=== PATIENT | female | born 1940 | race Caucasian/White ===

== ENCOUNTER 2019-08-27 10:41 | Inpatient (IN) | payer MEDICARE, OTHER ==
[2019-08-27] MEDS ORDERED: Diltiazem 125 MG/25 ML ONE (11:13)
[2019-08-27 11:26] LABS: #Basophils 0.1 thou/uL (0.0-0.2); #Eosinphils 0.2 thou/uL (0.0-0.7); #Lymphocytes 1.7 thou/uL (1.20-3.40); #Monocytes 0.7 thou/uL (0.11-0.59); #Neutrophils 4.9 thou/uL (1.40-6.50); %Basophils 0.8 % (0.0-1.0); %Eosinophils 2.4 % (0.0-10.0); %Monocytes 8.8 % (0.0-10.0); Hemoglobin 16.1 g/dL (12.0-16.0); Mean Corpuscular HGB CONC 31.6 g/dL (32.0-36.0); Mean Corpuscular Hemoglobin 29.5 pg (27.0-31.0); Mean Corpuscular Volume 93.5 fL (78.0-98.0); Mean Platelet Volume 7.7 fL (7.4-10.4); Platelet Count 210 thou/uL (130-400); RBC Distribution Width 13.7 % (11.5-14.5); Red Blood Cell (RBC) Count 5.45 mill/uL (4.20-5.40); White Blood Cell (WBC) Count 7.6 thou/uL (4.8-10.8)
--- NOTE | 2019-08-27 11:37 | RAD ---
RADIOGRAPH CHEST 1 VIEW: DATE: 08/27/2019 TIME: 10:53 AM HISTORY: 79-year-old female with dyspnea COMPARISON: 04/14/2015 FINDINGS: Cardiomegaly. Sternotomy wires. Ectasia of thoracic aorta. Small, faint patchy opacity overlying righ t lower lung zone. New mild blunting of left lateral costophrenic angle. New increased attenuation at medial left lower lobe base. No pneumothorax. No consolidation at lung apices. IMPRESSION: 1. Questionable new small bilateral lower lobe infiltrates. 2. Cardiomegaly 3. probable small left pleural effusion
[2019-08-27 11:54] LABS: ALT (SGPT) 19 U/L (8-55); AST (SGOT) 21 U/L (5-34); Albumin 4.1 g/dL (3.4-4.8); Alkaline Phosphatase 130 U/L (40-110); Anion Gap 15 mmol/L (10-20); BUN (Urea Nitrogen) 21 mg/dL (9.8-20.1); Bilirubin, Total 1.6 mg/dL (0.2-1.2); Calc. Creatinine Clearance 0 mL/min (70-130); Calcium 9.1 mg/dL (7.8-10.44); Carbon Dioxide 26 mmol/L (23-31); Chloride 105 mmol/L (98-107); Estimated GFR-MDRD 46; Glucose 104 mg/dL (83-110); Potassium 3.9 mmol/L (3.5-5.1); Protein, Total 7.1 g/dL (6.0-8.3); Sodium 142 mmol/L (136-145)
[2019-08-27 12:08] LABS: CKMB 1.4 ng/mL (0-6.6)
[2019-08-27] MEDS ORDERED: Nitroglycerin 2% Ointment 1 INCH/1 GM Packet ONE (12:28)
[2019-08-27] MEDS ORDERED: Aspirin Chewable 81 MG TAB ONE (12:28)
[2019-08-27] MEDS ORDERED: Furosemide 40 MG/4 ML VIAL ONE (12:28)
[2019-08-27] MEDS ORDERED: Enoxaparin Sodium 80 MG/0.8 ML SYRINGE ONE (14:03)
[2019-08-27] MEDS ORDERED: Enoxaparin Sodium 100 MG/ML SYRINGE ONE (14:04)
[2019-08-27 15:08] LABS: Troponin I 0.036 ng/mL (< 0.028)
[2019-08-27] MEDS ORDERED: Metoprolol Tartrate 5 MG/5 ML VIAL IVP PRN (15:38)
[2019-08-27] MEDS ORDERED: Acetaminophen 500 MG TAB ONE (15:42)
--- NOTE | 2019-08-27 16:17 | HP ---
CHIEF COMPLAINT: Shortness of breath and increased weight gain. HISTORY OF PRESENT ILLNESS: A 79-year-old female with a history of coronary artery disease, status post CABG and unknown valve replacement with Porcelain, presenting with increased weight of 10 pounds over 1 week. Worsening shortness of breath and weakness and edema. She is noted to have new atrial fibrillation with rate of 130 beats per minute and after Cardizem bolus, rate improved to 90s. Initially, she was hypoxic and with 4 L oxygen, saturations improved to 98%. Initial evaluation suggestive of CHF exacerbation. The patient will be admitted in the telemetry monitoring for CHF management. I talked to Dr. Flores, we will consult his group. The patient has seen Dr. Flores roughly 6 months ago. REVIEW OF SYSTEMS: The patient denies fever, night sweats, chills, productive cough, chest pain. She does have orthopnea and PND, as well as lower extremity edema. Denies any nausea, vomiting, or abdominal pain. She has a colostomy bag. Denies headache or blurriness. ALLERGIES: SHE IS ALLERGIC TO PENICILLIN AND SULFA. PAST MEDICAL HISTORY: 1. Coronary artery disease, status post CABG. 2. Valve replacement. 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 3. Hypertension. PAST SURGICAL HISTORY: History of colon cancer, status post colectomy and colostomy bag placement. MEDICATIONS: 1. Aspirin 81 mg daily. 2. Metoprolol, unknown dose. 3. Lasix 40 mg daily. 4. Potassium chloride, unknown dose. SOCIAL HISTORY: The patient does not smoke or drink alcohol. She lives with her . FAMILY HISTORY: Father of motor vehicle accident. Mother had CHF. LABORATORY DATA: Her creatinine 1.13. Sodium is 142. Her alkaline phosphate is 130 and total bilirubin 1.6. Troponin 0.034. BNP 468. Chest x-ray showed cardiomegaly and mild left pleural effusion and questionable bilateral lower lobe infiltrate. IMPRESSION AND PLAN: A 79-year-old female with history of coronary artery disease and congestive heart failure, presenting with, 1. Congestive heart failure exacerbation. 2. Shortness of breath, weakness, and hypoxia secondary to volume overload. 3. New onset atrial fibrillation with rapid ventricular response, probably triggered by congestive heart failure exacerbation. Currently, pulse is improving in the 90s. 4. Erythrocytosis, probably reflective of obstructive sleep apnea versus obesity hypoventilation syndrome. 5. Acute kidney injury with her last creatinine is less than 1.0. 6. Possible systolic acute on chronic congestive heart failure exacerbation. 7. Type 2 metabolic mismatch, demand ischemia. 8. Hyperbilirubinemia. 9. Elevated alkaline phosphatase. The patient will be admitted in the telemetry monitoring. We will get a 2D echo. We will continue with Lopressor and as needed metoprolol IV to keep the heart rate below 90. TSH is in the normal range. I have talked to Dr. Flores. We will consult on-call anode worker, Dr. Aguila. Given her obesity and congestive heart failure, she probably have portal hypertension as well that may explain her total bilirubin being high; however, the patient also has a remote history of a colon cancer. Strict in and outputs, daily weight, and Lasix IV diuresis and potassium supplement and daily BMP monitoring to watch the creatinine closely. Heparin b.i.d. for DVT prophylaxis. Full code. Job ID: [id number] MTDD
[2019-08-27 18:37] LABS: Troponin I 0.035 ng/mL (< 0.028)
[2019-08-27] MEDS: Metoprolol Tartrate 25 MG TAB PO SCH (20:26)
[2019-08-27] MEDS: Acetaminophen 325 MG TAB PO PRN (23:26)
[2019-08-28] MEDS ORDERED: Enoxaparin Sodium 100 MG/ML SYRINGE SC SCH (01:00)
[2019-08-28] MEDS ORDERED: Furosemide 40 MG/4 ML VIAL SLOW IVP SCH (01:00)
[2019-08-28 04:39] LABS: Band 7 % (5-11); Eosinophils 3 % (0-10); Hemoglobin 14.5 g/dL (12.0-16.0); Lymphocytes 28 % (21-51); MDiff Complete? YES; Mean Corpuscular HGB CONC 31.7 g/dL (32.0-36.0); Mean Corpuscular Hemoglobin 29.7 pg (27.0-31.0); Mean Corpuscular Volume 93.7 fL (78.0-98.0); Mean Platelet Volume 8.2 fL (7.4-10.4); Monocytes 7 % (0-10); Neutrophil 55 % (42-75); Platelet Count 212 thou/uL (130-400); Platelet Morphology Comment Appears Adequate; RBC Distribution Width 13.6 % (11.5-14.5); Red Blood Cell (RBC) Count 4.88 mill/uL (4.20-5.40); White Blood Cell (WBC) Count 8.4 thou/uL (4.8-10.8)
[2019-08-28 04:52] LABS: Anion Gap 14 mmol/L (10-20); BUN (Urea Nitrogen) 22 mg/dL (9.8-20.1); Calc. Creatinine Clearance 80 mL/min (70-130); Calcium 8.5 mg/dL (7.8-10.44); Carbon Dioxide 27 mmol/L (23-31); Chloride 101 mmol/L (98-107); Estimated GFR-MDRD 65; Glucose 104 mg/dL (83-110); Potassium 3.3 mmol/L (3.5-5.1); Sodium 139 mmol/L (136-145)
[2019-08-28] MEDS: Furosemide 40 MG/4 ML VIAL SLOW IVP SCH ×2 (06:01→14:27)
[2019-08-28] MEDS: Acetaminophen 325 MG TAB PO PRN (07:09)
[2019-08-28] MEDS ORDERED: Diltiazem HCl 125 MG, Admixture Fee 1 EACH in Sodium Chloride 0.9% 100 ML IVPB SCH (08:15)
[2019-08-28] MEDS: Metoprolol Tartrate 25 MG TAB PO SCH (08:20)
[2019-08-28 10:05] LABS: Platelet Count 200 thou/uL (130-400)
--- NOTE | 2019-08-28 13:31 | PDOC.HOSPP ---
- Subjective Encounter Date: 08/28/19 Encounter Time: 10:40 Subjective: having her meals, feels much better, her feet looks less taut. ouput 1400ml. - Objective Vital Signs & Weight: Vital Signs (12 hours) Temp Pulse Resp BP Pulse Ox 08/28/19 11:15 97.9 F 94 22 H 138/62 93 L 08/28/19 08:20 93 L 08/28/19 07:04 98.3 F 108 H 19 152/74 H 93 L 08/28/19 03:34 98.3 F 100 20 130/60 93 L Weight Weight 206 lb 6.4 oz I&O: 08/27/19 08/28/19 08/29/19 06:59 06:59 06:59 Intake Total 308 Output Total 1700 Balance -1392 Result Diagrams: 08/28/19 09:56 08/28/19 09:56 Hospitalist ROS - Medication Medications: Active Medications Generic Name Dose Route Start Last Admin Trade Name Freq PRN Reason Stop Dose Admin Acetaminophen 650 mg 08/27/19 12:53 08/28/19 07:09 Tylenol PO 650 mg Q4H PRN Administration Headache/Fever/Mild Pain (1-3) Furosemide 40 mg 08/28/19 06:00 08/28/19 06:01 Lasix SLOW IVP 40 mg 0600,1400 MANA Administration Metoprolol Tartrate 25 mg 08/27/19 21:00 08/28/19 08:20 Lopressor PO 25 mg BID MANA Administration - Exam General Appearance: NAD, awake alert Eye: PERRL ENT: normocephalic atraumatic Neck: supple Heart: RRR Respiratory: CTAB, normal chest expansion Gastrointestinal: soft, normal bowel sounds Extremities: 2+ LE edema Extremities - other findings: improving, skin less taut Neurological: no focal deficits Hosp A/P - Plan CHF exacerbation -good urine output around 1400ml/18hrs --cw iv lasix -cardiology input and echo pending. afib -HR still close to 100s - on cardizem gtt and home lopressor -lovenox bid until echo rpt reviewed.--then eliquis or xarelto erythrocytosis -resolved ERNESTO --improved. --cr at baseline now. --monitor closely. full code.
--- NOTE | 2019-08-28 15:52 | EKG ---
Test Reason : SOB Blood Pressure : / mmHG Vent. Rate : 126 BPM Atrial Rate : 136 BPM P-R Int : 000 ms QRS Dur : 120 ms QT Int : 312 ms P-R-T Axes : 000 -06 -32 degrees QTc Int : 451 ms Atrial fibrillation with rapid ventricular response with premature ventricular or aberrantly conducte d complexes Right bundle branch block Abnormal ECG Confirmed by RITA BALES DO ([id number]), news editor VILLA QUINTANILLA ([id number]) on 08/28/2019 3:51:37 PM Referred By: AMAIRANI Confirmed By:RITA BALES DO
--- NOTE | 2019-08-28 18:41 | CON ---
DATE OF CONSULTATION: REASON FOR CONSULTATION: Atrial fibrillation. HISTORY OF PRESENT ILLNESS: Ms. Stafford is a 79-year-old woman whom I have seen and evaluated in the past. She has a history of AVR. She recently presented with palpitations and shortness of breath. She was found to be in atrial fibrillation with RVR. She was placed on Cardizem IV. She is also currently on metoprolol p.o. She states overall she feels better. PAST MEDICAL HISTORY: CAD, status post bypass surgery and valve replacement; hypertension; previous colon cancer, status post colectomy. MEDICATIONS: Include, 1. Aspirin. 2. Metoprolol. 3. Lasix. 4. Potassium. SOCIAL HISTORY: No current tobacco or alcohol use. REVIEW OF SYSTEMS: A 10-point review of systems is reviewed as above, otherwise negative. PHYSICAL EXAMINATION: GENERAL: Patient is a pleasant female who is in no acute distress. The patient appears their stated age. VITAL SIGNS: Blood pressure 132/74, pulse 84, temperature 98.2. NEUROLOGIC: The patient is alert and oriented x3 with no focal neurologic deficits. HEENT: Sclerae without icterus. Mouth has moist mucous membranes with normal pallor. NECK: No JVD. Carotid upstroke brisk. No bruits bilaterally. LUNGS: Clear to auscultation with unlabored respirations. BACK: No scoliosis or kyphosis. CARDIAC: Irregularly irregular. ABDOMEN: Soft, nontender, nondistended. No peritoneal signs present. No hepatosplenomegaly. No abnormal striae. EXTREMITIES: 2+ femoral and 2+ dorsalis pedis pulses. No cyanosis, clubbing, or edema. SKIN: No gross abnormalities. PERTINENT LABORATORY DATA: Hemoglobin 15 and hematocrit 45. IMPRESSION: 1. New onset atrial fibrillation. 2. Coronary artery disease. 3. Status post aortic valve replacement. RECOMMENDATIONS: 1. Agree with anticoagulation therapy in addition to Lasix. 2. Continue p.o. beta david therapy and titrate up as needed. We will also recommend continued IV Cardizem. We will increase metoprolol to 37.5 mg p.o. b.i.d. Job ID: [id number]
[2019-08-28] MEDS: Enoxaparin Sodium 100 MG/ML SYRINGE SC SCH (20:31)
[2019-08-28] MEDS ORDERED: Metoprolol Tartrate 25 MG TAB PO SCH (21:00)
[2019-08-29] MEDS: Furosemide 40 MG/4 ML VIAL SLOW IVP SCH ×2 (05:28→15:26)
[2019-08-29] MEDS: Enoxaparin Sodium 100 MG/ML SYRINGE SC SCH (09:09)
--- NOTE | 2019-08-29 10:29 | PRG ---
DATE OF SERVICE: 08/29/2019 SUBJECTIVE: Ms. Stafford is doing much better. She has lost close to 10 pounds in the last 24 hours. Her heart rate is better, but continues to be on IV Cardizem. OBJECTIVE: VITAL SIGNS: Blood pressure 132/81, pulse 74, and temperature 97.9. LUNGS: Decreased crackles noted bilaterally. HEART: Irregularly irregular. ABDOMEN: Soft, nontender, and nondistended. EXTREMITIES: No edema. PERTINENT LABORATORY DATA: Hemoglobin 15 and hematocrit 45. IMPRESSION: Atrial fibrillation. RECOMMENDATIONS: 1. Continue IV Lasix. May decrease the Lasix to daily tomorrow. 2. Discontinue metoprolol and add Cardizem p.o. and trying to titrate down IV. Job ID: [id number]
--- NOTE | 2019-08-29 13:29 | PDOC.HOSPP ---
- Subjective Encounter Date: 08/29/19 Encounter Time: 11:50 Subjective: edema is improving, pt feels much better. she has no c/o this morning. card note reviewed, will dec lasix to q daily IV on 22ns. - Objective Vital Signs & Weight: Vital Signs (12 hours) Temp Pulse Resp BP Pulse Ox 08/29/19 12:16 98.0 F 86 18 136/56 L 93 L 08/29/19 09:09 93 L 08/29/19 07:33 97.9 F 74 19 132/81 93 L 08/29/19 04:00 98.0 F 68 18 128/73 94 L Weight Weight 201 lb 6.4 oz I&O: 08/28/19 08/29/19 08/30/19 06:59 06:59 06:59 Intake Total 1779.2 Output Total 4400 Balance -2620.8 Result Diagrams: 08/28/19 09:56 08/28/19 09:56 Hospitalist ROS - Medication Medications: Active Medications Generic Name Dose Route Start Last Admin Trade Name Cristianoq PRN Reason Stop Dose Admin Acetaminophen 650 mg 08/27/19 12:53 08/28/19 07:09 Tylenol PO 650 mg Q4H PRN Administration Headache/Fever/Mild Pain (1-3) Diltiazem HCl 60 mg 08/29/19 12:00 08/29/19 12:19 Cardizem PO 60 mg Q6HR MANA Administration Enoxaparin Sodium 90 mg 08/28/19 21:00 08/29/19 09:09 Lovenox SC 90 mg BID MANA Administration Furosemide 40 mg 08/28/19 06:00 08/29/19 05:28 Lasix SLOW IVP 40 mg 0600,1400 MANA Administration - Exam General Appearance: awake alert Eye: PERRL ENT: normocephalic atraumatic Neck: supple Heart: RRR, normal peripheral pulses Respiratory: CTAB, normal chest expansion Gastrointestinal: soft, normal bowel sounds Extremities - other findings: no edema Hosp A/P - Plan CHF exacerbation -good urine output around 1400ml/18hrs --cw iv lasix afib -HR still close to 100s - on cardizem gtt and home lopressor -lovenox bid until echo rpt reviewed.--then eliquis or xarelto erythrocytosis -resolved ERNESTO --improved. --cr at baseline now. --monitor closely. will change lasix bid to q daily on echo rpt pending need to change AC to PO -will talk to cardiology. full code.
[2019-08-29] MEDS: Apixaban 5 MG TAB PO SCH (20:32)
[2019-08-30] MEDS: Furosemide 40 MG/4 ML VIAL SLOW IVP SCH ×2 (05:55→14:01)
[2019-08-30] MEDS: Apixaban 5 MG TAB PO SCH ×2 (08:23→20:53)
[2019-08-30 08:40] LABS: Anion Gap 16 mmol/L (10-20); BUN (Urea Nitrogen) 19 mg/dL (9.8-20.1); Calc. Creatinine Clearance 71 mL/min (70-130); Carbon Dioxide 30 mmol/L (23-31); Chloride 97 mmol/L (98-107); Estimated GFR-MDRD 59; Glucose 129 mg/dL (83-110); Potassium 3.5 mmol/L (3.5-5.1); Sodium 139 mmol/L (136-145)
--- NOTE | 2019-08-30 13:12 | PDOC.HOSPP ---
- Subjective Encounter Date: 08/30/19 Encounter Time: 10:10 Subjective: morning nap? feels that staffs helped to clean her up, feels little tired but otherwise ok, and "doing well". pulse < 90, will stop the drip. - Objective Vital Signs & Weight: Vital Signs (12 hours) Temp Pulse Resp BP Pulse Ox 08/30/19 11:17 98.0 F 83 20 130/74 95 08/30/19 07:28 98.1 F 102 H 20 143/74 H 92 L 08/30/19 04:00 97.8 F 95 20 131/68 93 L Weight Weight 200 lb I&O: 08/29/19 08/30/19 08/31/19 06:59 06:59 06:59 Intake Total 1779.2 1008 259 Output Total 4400 2150 1200 Balance -2620.8 -1142 -941 Result Diagrams: 08/28/19 09:56 08/30/19 07:57 Hospitalist ROS - Medication Medications: Active Medications Generic Name Dose Route Start Last Admin Trade Name Freq PRN Reason Stop Dose Admin Acetaminophen 650 mg 08/27/19 12:53 08/28/19 07:09 Tylenol PO 650 mg Q4H PRN Administration Headache/Fever/Mild Pain (1-3) Apixaban 5 mg 08/29/19 21:00 08/30/19 08:23 Eliquis PO 5 mg BID MANA Administration Diltiazem HCl 60 mg 08/29/19 12:00 08/30/19 11:27 Cardizem PO 60 mg Q6HR MANA Administration Furosemide 40 mg 08/28/19 06:00 08/30/19 05:55 Lasix SLOW IVP 40 mg 0600,1400 MANA Administration - Exam General Appearance: NAD, awake alert Eye: PERRL Neck: supple Heart: irregular Respiratory: CTAB, normal chest expansion Gastrointestinal: soft, normal bowel sounds Neurological: no focal deficits Hosp A/P - Plan CHF exacerbation -good urine output around 1400ml/18hrs --cw iv lasix afib -HR still close to 100s - on cardizem gtt and home lopressor -lovenox bid until echo rpt reviewed.--then eliquis or xarelto erythrocytosis -resolved ERNESTO --improved. --cr at baseline now. --monitor closely. will change lasix bid to q daily on echo rpt pending----------> checked on -- still pending. need to change AC to PO----started on --eliquis 5 bid -Bobo w.. cardiology on AC choice. PT consult. C vs.. rehab. full code.
--- NOTE | 2019-08-30 14:43 | PRG ---
DATE OF SERVICE: 08/30/2019 SUBJECTIVE: Ms. Stafford is doing much better. She feels better with less shortness of breath. Heart rate appears to be improved as well. She is currently on diltiazem 60 mg q.6 hours for a total of 240 in a 24-hour period. OBJECTIVE: VITAL SIGNS: Blood pressure 130/74, pulse 83, and temperature 98. LUNGS: Minimal crackles bilaterally. HEART: Irregularly irregular. ABDOMEN: Soft, nontender, and nondistended. EXTREMITIES: No edema. PERTINENT LABORATORY DATA: Hemoglobin 15 and creatinine 0.92. IMPRESSION: New-onset atrial fibrillation. RECOMMENDATIONS: 1. Discontinue IV Cardizem and continue p.o. Cardizem. 2. May increase short-acting Cardizem to 360 q.24 hours if needed, but at this point, she is holding at 240 q.24 hours. We will switch the Lasix to p.o. Lasix in a.m. Agree with discontinuing Lovenox and place of Eliquis. If doing well in a.m., would be okay from my standpoint to discharge home. Job ID: [id number]
[2019-08-30] MEDS ORDERED: Amlodipine 5 MG TAB PO SCH (18:45)
[2019-08-31 04:39] LABS: Hemoglobin 15.5 g/dL (12.0-16.0); Platelet Count 219 thou/uL (130-400)
[2019-08-31 04:40] LABS: #Eosinphils 0.4 thou/uL (0.0-0.7); #Lymphocytes 1.7 thou/uL (1.20-3.40); #Monocytes 0.9 thou/uL (0.11-0.59); #Neutrophils 5.5 thou/uL (1.40-6.50); %Basophils 0.2 % (0.0-1.0); %Eosinophils 4.3 % (0.0-10.0); %Monocytes 10.6 % (0.0-10.0); %Neutrophils 64.9 % (42.0-75.0); Hemoglobin 15.3 g/dL (12.0-16.0); Mean Corpuscular HGB CONC 30.3 g/dL (32.0-36.0); Mean Corpuscular Hemoglobin 28.5 pg (27.0-31.0); Mean Corpuscular Volume 94.1 fL (78.0-98.0); Mean Platelet Volume 7.5 fL (7.4-10.4); Platelet Count 226 thou/uL (130-400); RBC Distribution Width 13.9 % (11.5-14.5); Red Blood Cell (RBC) Count 5.38 mill/uL (4.20-5.40); White Blood Cell (WBC) Count 8.5 thou/uL (4.8-10.8)
[2019-08-31] MEDS: Furosemide 40 MG/4 ML VIAL SLOW IVP SCH (05:51)
[2019-08-31] MEDS ORDERED: Amlodipine 5 MG TAB PO SCH (09:00)
[2019-08-31] MEDS: Acetaminophen 325 MG TAB PO PRN (09:41)
[2019-08-31] MEDS: Apixaban 5 MG TAB PO SCH ×2 (09:42→20:53)
[2019-08-31] MEDS ORDERED: Metoprolol Tartrate 25 MG TAB PO SCH (11:30)
--- NOTE | 2019-08-31 13:42 | PDOC.CPN ---
- Subjective Date: 08/31/19 Time: 12:30 Interval history: Patient overall feeling much better. No CP/SOB. Still with RVR. - Review of Systems General: denies: fever/chills, weight/appetite/sleep changes, night sweats, fatigue Respiratory: denies: cough, congestion, shortness of breath, exercise intolerance Cardiovascular: denies: chest pain, palpitation, edema, paroxysmal nocturnal dyspnea, orthopnea Gastrointestinal: denies: nausea, vomiting, diarrhea, constipation, abd pain, GI bleeding Musculoskeletal: denies: pain, tenderness, stiffness, swelling, arthritis/ arthralgias Neurological: denies: numbness, syncope, seizure, weakness - Objective Allergies/Adverse Reactions: Allergies Allergy/AdvReac Type Severity Reaction Status Date / Time Penicillins Allergy Verified 08/27/19 17:04 Sulfa (Sulfonamide Allergy Verified 08/27/19 17:04 Antibiotics) Visit Medications: Current Medications Acetaminophen (Tylenol) 650 mg PO Q4H PRN PRN Reason: Headache/Fever/Mild Pain (1-3) Last Admin: 08/31/19 09:41 Dose: 650 mg Amlodipine Besylate (Norvasc) 5 mg PO DAILY [facility] Last Admin: 08/31/19 09:41 Dose: 5 mg Apixaban (Eliquis) 5 mg PO BID [facility] Last Admin: 08/31/19 09:42 Dose: 5 mg Diltiazem HCl (Cardizem) 60 mg PO Q6HR [facility] Last Admin: 08/31/19 12:01 Dose: 60 mg Furosemide (Lasix) 20 mg PO 0900,1400 [facility] Metoprolol Tartrate (Lopressor) 12.5 mg PO BID [facility] Vital Signs & Weight: Vital Signs Temp Pulse Resp BP BP Pulse Ox 08/31/19 12:00 98.4 F 120 H 18 124/63 99 08/31/19 09:45 95 08/31/19 09:41 110 H 122/59 L 08/31/19 09:31 98.2 F 110 H 16 122/59 L 95 08/31/19 03:51 98.2 F 113 H 20 121/72 93 L Weight 197 lb 12.8 oz - Physical Exam General: alert & oriented x3 HEENT: mucus membranes moist Neck: supple neck Cardiac: other (IRR iRR) Lungs: clear to auscultation, no wheeze, rales, rhonchi Neuro: grossly intact Abdomen: soft, non-tender Extremities: no edema Musculoskeletal: no pain - Labs Result Diagrams: 08/31/19 03:59 08/30/19 07:57 Troponin/CKMB CK-MB (CK-2) 1.4 ng/mL (0-6.6) 08/27/19 11:01 Troponin I 0.035 ng/mL (< 0.028) H 08/27/19 17:55 - Assessment/Plan Assessment/Plan: 1. New-onset AF 2. s/p AVR Patient still with RVR. BBlocker added today. Probably will need increased dosage of Toprol or CCB. Stop Norvasc. Continue Eliquis. RG-Pt seen and examined; agree with the above assessment Add digoxin loading and add BB Home whern HR stable
[2019-08-31] MEDS: Furosemide 20 MG TAB PO SCH (14:16)
[2019-08-31] MEDS ORDERED: Digoxin 0.5 MG/2 ML AMP SLOW IVP SCH (15:00)
--- NOTE | 2019-08-31 15:55 | PDOC.HOSPP ---
- Subjective Encounter Date: 08/31/19 Encounter Time: 14:00 Subjective: Ms Stafford was seen as a follow up this afternoon for Afib, CHF exacerbation, and ERNESTO. She states she is doing well and wants to go home. She feels that her heart still is going too fast though. No overnight events or concerns expressed. - Objective Vital Signs & Weight: Vital Signs (12 hours) Temp Pulse Resp BP BP Pulse Ox 08/31/19 12:00 98.4 F 120 H 18 124/63 99 08/31/19 09:45 95 08/31/19 09:41 110 H 122/59 L 08/31/19 09:31 98.2 F 110 H 16 122/59 L 95 Weight Weight 197 lb 12.8 oz I&O: 08/30/19 08/31/19 09/01/19 06:59 06:59 06:59 Intake Total 1008 1819 Output Total 2150 2400 Balance -1142 -581 Result Diagrams: 08/31/19 03:59 08/30/19 07:57 EKG Reviewed by me: Yes (AF 110s) Hospitalist ROS - Medication Medications: Active Medications Generic Name Dose Route Start Last Admin Trade Name Freq PRN Reason Stop Dose Admin Acetaminophen 650 mg 08/27/19 12:53 08/31/19 09:41 Tylenol PO 650 mg Q4H PRN Administration Headache/Fever/Mild Pain (1-3) Apixaban 5 mg 08/29/19 21:00 08/31/19 09:42 Eliquis PO 5 mg BID MANA Administration Diltiazem HCl 60 mg 08/29/19 12:00 08/31/19 12:01 Cardizem PO 60 mg Q6HR MANA Administration Furosemide 20 mg 08/31/19 14:00 08/31/19 14:16 Lasix PO 20 mg 0900,1400 MANA Administration - Exam General Appearance: NAD, awake alert Neck: supple, no lymphadenopathy Heart: no murmur, no gallops, no rubs, irregular, diminshed peripheral pulses Respiratory: normal chest expansion, wheezes Respiratory - other findings: nonproductive cough Gastrointestinal: soft, non-tender Gastrointestinal - other findings: colostomy to lower RQ Extremities: no cyanosis, 2+ LE edema Neurological: no focal deficits Psychiatric: normal affect, normal behavior Hosp A/P (1) Afib Code(s): I48.91 - UNSPECIFIED ATRIAL FIBRILLATION Status: Acute (2) ERNESTO (acute kidney injury) Code(s): N17.9 - ACUTE KIDNEY FAILURE, UNSPECIFIED Status: Acute (3) CHF exacerbation Code(s): I50.9 - HEART FAILURE, UNSPECIFIED Status: Acute - Plan AFib: BB initiated per cardiology, PO cardizem continued, will continue to monitor on telemetry and see how she does with BB overnight ERNESTO: has improved since admission- now at baseline levels, will still be mindful of nephrotoxic medications when making adjustments CHF Exacerbation: states breathing has been easier since admission, continue Lasix- changed to PO today
--- NOTE | 2019-08-31 19:08 | PDOC.EVN ---
Event Note - Event Note Event Note: Ms. Stafford was seen today and discussed with Nhi GALICIA, in follow- up of AFIB with RVR. She notes feeling a little heaviness in her chest earlier. She says this is better now. She has noted some coughing since she started the new medication ( Metoprolol). On exam she had some wheezing bilaterally, no rales. She also had approximately 1-2 + pitting edema in both lower extremities. Her heart rate has been elevated. Metoprolol has been added to Cardizem. Will continue as per Cardiology recommendations.
[2019-08-31] MEDS ORDERED: Diabetic Tussin 200 MG/10 ML UDCUP PO PRN (20:34)
[2019-08-31] MEDS: Metoprolol Tartrate 25 MG TAB PO SCH (20:55)
[2019-08-31] MEDS ORDERED: Digoxin 0.25 MG TAB PO SCH (21:00)
[2019-09-01 04:28] LABS: Anion Gap 13 mmol/L (10-20); BUN (Urea Nitrogen) 22 mg/dL (9.8-20.1); Calc. Creatinine Clearance 75 mL/min (70-130); Calcium 9.2 mg/dL (7.8-10.44); Carbon Dioxide 29 mmol/L (23-31); Chloride 100 mmol/L (98-107); Estimated GFR-MDRD 64; Glucose 109 mg/dL (83-110); Potassium 3.8 mmol/L (3.5-5.1); Sodium 138 mmol/L (136-145)
[2019-09-01] MEDS: Digoxin 0.125 MG TAB PO SCH (08:49)
[2019-09-01] MEDS: Apixaban 5 MG TAB PO SCH ×2 (08:50→21:57)
[2019-09-01] MEDS: Metoprolol Tartrate 25 MG TAB PO SCH ×2 (08:50→21:57)
[2019-09-01] MEDS: Furosemide 20 MG TAB PO SCH ×2 (08:51→14:12)
[2019-09-01] MEDS ORDERED: Metoprolol Tartrate 25 MG TAB PO SCH (10:15)
--- NOTE | 2019-09-01 12:44 | PDOC.CPN ---
- Subjective Date: 09/01/19 Time: 09:30 Interval history: No complaints. Pulse still 100-120bpm on average. Loaded with Dig yesterday. - Review of Systems General: denies: fever/chills, weight/appetite/sleep changes, night sweats, fatigue Respiratory: denies: cough, congestion, shortness of breath, exercise intolerance Cardiovascular: denies: chest pain, palpitation, edema, paroxysmal nocturnal dyspnea, orthopnea Gastrointestinal: denies: nausea, vomiting, diarrhea, constipation, abd pain, GI bleeding Musculoskeletal: denies: pain, tenderness, stiffness, swelling, arthritis/ arthralgias Neurological: reports: weakness - Objective Allergies/Adverse Reactions: Allergies Allergy/AdvReac Type Severity Reaction Status Date / Time Penicillins Allergy Verified 08/27/19 17:04 Sulfa (Sulfonamide Allergy Verified 08/27/19 17:04 Antibiotics) Visit Medications: Current Medications Acetaminophen (Tylenol) 650 mg PO Q4H PRN PRN Reason: Headache/Fever/Mild Pain (1-3) Last Admin: 08/31/19 09:41 Dose: 650 mg Apixaban (Eliquis) 5 mg PO BID [facility] Last Admin: 09/01/19 08:50 Dose: 5 mg Digoxin (Lanoxin) 0.125 mg PO DAILY [facility] Last Admin: 09/01/19 08:49 Dose: 0.125 mg Diltiazem HCl (Cardizem) 90 mg PO Q6HR [facility] Last Admin: 09/01/19 12:22 Dose: 90 mg Furosemide (Lasix) 20 mg PO 0900,1400 [facility] Last Admin: 09/01/19 08:51 Dose: 20 mg Guaifenesin (Robitussin Sf) 100 mg PO TIDPRN PRN PRN Reason: Cough Last Admin: 08/31/19 20:53 Dose: 100 mg Metoprolol Tartrate (Lopressor) 25 mg PO BID [facility] Vital Signs & Weight: Vital Signs Temp Pulse Resp BP Pulse Ox 09/01/19 11:39 97.9 F 80 20 131/65 92 L 09/01/19 08:55 92 L 09/01/19 08:49 105 H 09/01/19 08:39 98.6 F 83 16 130/71 92 L 09/01/19 03:48 97.4 F L 99 16 136/70 92 L Weight 196 lb 12.8 oz - Physical Exam General: alert & oriented x3 HEENT: mucus membranes moist Neck: supple neck Cardiac: other (IRR IRR) Lungs: no wheeze, rales, rhonchi Neuro: grossly intact Abdomen: soft Skin: clear Musculoskeletal: no pain - Labs Result Diagrams: 08/31/19 03:59 09/01/19 03:45 Troponin/CKMB CK-MB (CK-2) 1.4 ng/mL (0-6.6) 08/27/19 11:01 Troponin I 0.035 ng/mL (< 0.028) H 08/27/19 17:55 - Assessment/Plan Assessment/Plan: 1. New onset AF with RVR 2. s/p AVR 3. DEMIAN 4. Hx CAD with 50% mid LAD stenosis on cath 2011 Will increase bblocker. If rate control cannot be acheived, consider cardioversion. 12:30 Discussed with RG. He instructs adding flecainide 50mg BID. Pt seen and examined Pt with difficult to control HR On CCB and BB Recommend CV in am Discussed R/B of RUSSELL/CV including not limited to: stroke, damage to teeth, moputh, esophagus requiring surgery and aspiration pneumonia. Also failed CV, need for pacer, or need for repeat CV. Pt agreed to prooceed. Add flecainide
--- NOTE | 2019-09-01 13:08 | PDOC.HOSPP ---
- Subjective Encounter Date: 09/01/19 Encounter Time: 12:05 Subjective: Mrs Stafford was seen as a follow up for Afib, CHF exacerbation and ERNESTO. She states she feels well and her cough is better. She denies any concerns or overnight events. - Objective Vital Signs & Weight: Vital Signs (12 hours) Temp Pulse Resp BP Pulse Ox 09/01/19 11:39 97.9 F 80 20 131/65 92 L 09/01/19 08:55 92 L 09/01/19 08:49 105 H 09/01/19 08:39 98.6 F 83 16 130/71 92 L 09/01/19 03:48 97.4 F L 99 16 136/70 92 L Weight Weight 196 lb 12.8 oz I&O: 08/31/19 09/01/19 09/02/19 06:59 06:59 06:59 Intake Total 1819 1980 Output Total 2400 970 Balance -581 1010 Result Diagrams: 08/31/19 03:59 09/01/19 03:45 EKG Reviewed by me: Yes (AF 100s) Hospitalist ROS - Medication Medications: Active Medications Generic Name Dose Route Start Last Admin Trade Name Freq PRN Reason Stop Dose Admin Acetaminophen 650 mg 08/27/19 12:53 08/31/19 09:41 Tylenol PO 650 mg Q4H PRN Administration Headache/Fever/Mild Pain (1-3) Apixaban 5 mg 08/29/19 21:00 09/01/19 08:50 Eliquis PO 5 mg BID MANA Administration Digoxin 0.125 mg 09/01/19 09:00 09/01/19 08:49 Lanoxin PO 0.125 mg DAILY MANA Administration Diltiazem HCl 90 mg 09/01/19 12:00 09/01/19 12:22 Cardizem PO 90 mg Q6HR MANA Administration Furosemide 20 mg 08/31/19 14:00 09/01/19 08:51 Lasix PO 20 mg 0900,1400 MANA Administration Guaifenesin 100 mg 08/31/19 20:34 08/31/19 20:53 Robitussin Sf PO 100 mg TIDPRN PRN Administration Cough - Exam General Appearance: NAD, awake alert Neck: supple, symmetric, no lymphadenopathy Heart: no murmur, no gallops, no rubs, irregular Respiratory: CTAB, no wheezes Gastrointestinal: soft, non-tender, non-distended, normal bowel sounds Psychiatric: normal affect, normal behavior Hosp A/P (1) Afib Code(s): I48.91 - UNSPECIFIED ATRIAL FIBRILLATION Status: Acute (2) ERNESTO (acute kidney injury) Code(s): N17.9 - ACUTE KIDNEY FAILURE, UNSPECIFIED Status: Acute (3) CHF exacerbation Code(s): I50.9 - HEART FAILURE, UNSPECIFIED Status: Acute - Plan AFib: BB, cadizem and digoxin to continue, monitor tele, cardiology still providing input ERNESTO: stable CHF Exacerbation: PO lasix, stable
[2019-09-01] MEDS ORDERED: Milk Of Magnesia 30 ML UDCUP PO PRN (14:26)
--- NOTE | 2019-09-01 15:10 | PDOC.HOSPP ---
- Subjective Encounter Date: 09/01/19 Encounter Time: 15:08 Subjective: Ms. Stafford was seen today in follow-up of AFIB with Rvr. Her heart rate has been elevated despite medications. She currently denies chest pain or difficulty breathing. - Objective Vital Signs & Weight: Vital Signs (12 hours) Temp Pulse Resp BP Pulse Ox 09/01/19 11:39 97.9 F 80 20 131/65 92 L 09/01/19 08:55 92 L 09/01/19 08:49 105 H 09/01/19 08:39 98.6 F 83 16 130/71 92 L 09/01/19 03:48 97.4 F L 99 16 136/70 92 L Weight Weight 196 lb 12.8 oz I&O: 08/31/19 09/01/19 09/02/19 06:59 06:59 06:59 Intake Total 1819 1980 Output Total 2400 970 Balance -581 1010 Result Diagrams: 08/31/19 03:59 09/01/19 03:45 Hospitalist ROS - Medication Medications: Active Medications Generic Name Dose Route Start Last Admin Trade Name Freq PRN Reason Stop Dose Admin Acetaminophen 650 mg 08/27/19 12:53 08/31/19 09:41 Tylenol PO 650 mg Q4H PRN Administration Headache/Fever/Mild Pain (1-3) Apixaban 5 mg 08/29/19 21:00 09/01/19 08:50 Eliquis PO 5 mg BID MANA Administration Digoxin 0.125 mg 09/01/19 09:00 09/01/19 08:49 Lanoxin PO 0.125 mg DAILY MANA Administration Diltiazem HCl 90 mg 09/01/19 12:00 09/01/19 12:22 Cardizem PO 90 mg Q6HR MANA Administration Furosemide 20 mg 08/31/19 14:00 09/01/19 14:12 Lasix PO 20 mg 0900,1400 MANA Administration Guaifenesin 100 mg 08/31/19 20:34 08/31/19 20:53 Robitussin Sf PO 100 mg TIDPRN PRN Administration Cough Magnesium Hydroxide 30 ml 09/01/19 14:26 09/01/19 14:38 Milk Of Magnesium PO 30 ml DAILYPRN PRN Administration Constipation - Exam Eye: PERRL, anicteric sclera Heart: no gallops, no rubs, irregular Respiratory: CTAB (with occasional rhonchi), no wheezes, no rales, normal chest expansion Gastrointestinal: soft, non-tender, non-distended, normal bowel sounds, no palpable masses, no hepatomegaly Extremities: no cyanosis Hosp A/P (1) Afib Code(s): I48.91 - UNSPECIFIED ATRIAL FIBRILLATION Status: Acute (2) ERNESTO (acute kidney injury) Code(s): N17.9 - ACUTE KIDNEY FAILURE, UNSPECIFIED Status: Acute (3) CHF exacerbation Code(s): I50.9 - HEART FAILURE, UNSPECIFIED Status: Acute - Plan * AFIB- her heart rate has been elevated- Digoxin was added to Cardizem and Metoprolol yesterday. Flecainide was added today * Likely Cardioversion tomorrow * Chronic CHF with preserved EF- stable * Chronic kidney disease- stable
[2019-09-01] MEDS ORDERED: Flecainide 50 MG TAB PO SCH (17:00)
[2019-09-01] MEDS: Acetaminophen 325 MG TAB PO PRN (21:57)
[2019-09-02] MEDS: Digoxin 0.125 MG TAB PO SCH (08:50)
[2019-09-02] MEDS: Furosemide 20 MG TAB PO SCH ×2 (08:50→12:55)
[2019-09-02] MEDS: Flecainide 50 MG TAB PO SCH ×2 (08:51→20:44)
[2019-09-02] MEDS: Apixaban 5 MG TAB PO SCH ×2 (08:51→20:44)
[2019-09-02] MEDS: Metoprolol Tartrate 25 MG TAB PO SCH ×2 (08:51→20:44)
[2019-09-02 10:35] LABS: SARS-CoV-2 MS2 Positive; SARS-CoV-2 N Gene Negative; SARS-CoV-2 S Gene Negative; SARS-CoV-2 orf1ab Negative
--- NOTE | 2019-09-02 11:58 | PDOC.HOSPP ---
- Subjective Encounter Date: 09/02/19 Encounter Time: 10:45 Subjective: Mrs Stafford was seen this morning for a follow up on her Afib with RVR. She was rate controlled throughout the night and denies any other overnight events or concerns. This morning she has been laughing and saying she feels great. - Objective Vital Signs & Weight: Vital Signs (12 hours) Temp Pulse Resp BP Pulse Ox 09/02/19 11:37 97.4 F L 84 19 128/58 L 96 09/02/19 08:56 98.1 F 80 16 115/82 96 09/02/19 08:50 81 09/02/19 03:53 97.7 F 73 18 100/54 L 95 Weight Weight 194 lb 14.4 oz I&O: 09/01/19 09/02/19 09/03/19 06:59 06:59 06:59 Intake Total 1980 960 Output Total 970 1220 Balance 1010 -260 Result Diagrams: 08/31/19 03:59 09/01/19 03:45 Hospitalist ROS - Medication Medications: Active Medications Generic Name Dose Route Start Last Admin Trade Name Freq PRN Reason Stop Dose Admin Acetaminophen 650 mg 08/27/19 12:53 09/01/19 21:57 Tylenol PO 650 mg Q4H PRN Administration Headache/Fever/Mild Pain (1-3) Apixaban 5 mg 08/29/19 21:00 09/02/19 08:51 Eliquis PO 5 mg BID MANA Administration Digoxin 0.125 mg 09/01/19 09:00 09/02/19 08:50 Lanoxin PO 0.125 mg DAILY MANA Administration Diltiazem HCl 90 mg 09/01/19 12:00 09/02/19 05:51 Cardizem PO 90 mg Q6HR MANA Administration Flecainide Acetate 50 mg 09/02/19 09:00 09/02/19 08:51 Tambocor PO 50 mg Q12HR MANA Administration Furosemide 20 mg 08/31/19 14:00 09/02/19 08:50 Lasix PO 20 mg 0900,1400 MANA Administration Guaifenesin 100 mg 08/31/19 20:34 08/31/19 20:53 Robitussin Sf PO 100 mg TIDPRN PRN Administration Cough Magnesium Hydroxide 30 ml 09/01/19 14:26 09/01/19 14:38 Milk Of Magnesium PO 30 ml DAILYPRN PRN Administration Constipation Metoprolol Tartrate 25 mg 09/01/19 21:00 09/02/19 08:51 Lopressor PO 25 mg BID MANA Administration - Exam General Appearance: NAD, awake alert ENT: normocephalic atraumatic, moist mucosa Neck: supple, symmetric, no lymphadenopathy Heart: no murmur, no gallops, no rubs, irregular, diminshed peripheral pulses Respiratory: CTAB, no wheezes, no rales, no ronchi Gastrointestinal: soft, non-tender, normal bowel sounds Extremities: 1+ LE edema Psychiatric: normal affect, normal behavior Hosp A/P (1) Afib Code(s): I48.91 - UNSPECIFIED ATRIAL FIBRILLATION Status: Acute (2) ERNESTO (acute kidney injury) Code(s): N17.9 - ACUTE KIDNEY FAILURE, UNSPECIFIED Status: Acute (3) CHF exacerbation Code(s): I50.9 - HEART FAILURE, UNSPECIFIED Status: Acute - Plan AFib: flecanide added yesterday to medication regimen, AF 70s currently- states she feels great, cardiology feels she may be discharged later this day if stays rate controlled ERNESTO: appears to be back to baseline GFR and creatinine CHF Exacerbation: PO lasix, will try to wean off O2 today
[2019-09-02] MEDS: Acetaminophen 325 MG TAB PO PRN ×2 (12:56→23:01)
--- NOTE | 2019-09-02 15:01 | PDOC.HOSPP ---
- Subjective Encounter Date: 09/02/19 Encounter Time: 15:00 Subjective: Ms. Stafford was seen today in follow-up of AFIB with rvr. She notes breathing better today, no new complaints. - Objective Vital Signs & Weight: Vital Signs (12 hours) Temp Pulse Resp BP Pulse Ox 09/02/19 11:37 97.4 F L 84 19 128/58 L 96 09/02/19 08:56 98.1 F 80 16 115/82 96 09/02/19 08:55 95 09/02/19 08:50 81 09/02/19 03:53 97.7 F 73 18 100/54 L 95 Weight Weight 194 lb 14.4 oz I&O: 09/01/19 09/02/19 09/03/19 06:59 06:59 06:59 Intake Total 1980 960 Output Total 970 1220 Balance 1010 -260 Result Diagrams: 08/31/19 03:59 09/01/19 03:45 Hospitalist ROS - Medication Medications: Active Medications Generic Name Dose Route Start Last Admin Trade Name Freq PRN Reason Stop Dose Admin Acetaminophen 650 mg 08/27/19 12:53 09/02/19 12:56 Tylenol PO 650 mg Q4H PRN Administration Headache/Fever/Mild Pain (1-3) Apixaban 5 mg 08/29/19 21:00 09/02/19 08:51 Eliquis PO 5 mg BID MANA Administration Digoxin 0.125 mg 09/01/19 09:00 09/02/19 08:50 Lanoxin PO 0.125 mg DAILY MANA Administration Diltiazem HCl 90 mg 09/01/19 12:00 09/02/19 12:55 Cardizem PO 90 mg Q6HR MANA Administration Flecainide Acetate 50 mg 09/02/19 09:00 09/02/19 08:51 Tambocor PO 50 mg Q12HR MANA Administration Furosemide 20 mg 08/31/19 14:00 09/02/19 12:55 Lasix PO 20 mg 0900,1400 MANA Administration Guaifenesin 100 mg 08/31/19 20:34 08/31/19 20:53 Robitussin Sf PO 100 mg TIDPRN PRN Administration Cough Magnesium Hydroxide 30 ml 09/01/19 14:26 09/01/19 14:38 Milk Of Magnesium PO 30 ml DAILYPRN PRN Administration Constipation Metoprolol Tartrate 25 mg 09/01/19 21:00 09/02/19 08:51 Lopressor PO 25 mg BID MANA Administration - Exam Eye: PERRL, anicteric sclera Heart: RRR, no murmur, no gallops, no rubs Respiratory: CTAB, no wheezes, no rales, no ronchi, normal chest expansion, no tachypnea Gastrointestinal: soft, non-tender, non-distended, normal bowel sounds, no palpable masses, no hepatomegaly Extremities: no cyanosis, 1+ LE edema (1+ pitting edema in both lower extremities) Hosp A/P (1) Afib Code(s): I48.91 - UNSPECIFIED ATRIAL FIBRILLATION Status: Acute (2) ERNESTO (acute kidney injury) Code(s): N17.9 - ACUTE KIDNEY FAILURE, UNSPECIFIED Status: Acute (3) CHF exacerbation Code(s): I50.9 - HEART FAILURE, UNSPECIFIED Status: Acute - Plan * AFIB- her heart rate is stable- continue Cardizem, Digoxin, Metoprolol and Flecainide * She may not require Cardioversion * Chronic CHF with preserved EF- She may have some mild volume overload * Chronic kidney disease- stable * It was noted that she is still requiring supplemental oxygen- continue Lasix p.o. and re-evaluate later today or in the AM * Hopefully home soon
[2019-09-03 04:38] LABS: Hemoglobin 15.3 g/dL (12.0-16.0); Platelet Count 200 thou/uL (130-400)
[2019-09-03] MEDS ORDERED: Furosemide 40 MG/4 ML VIAL SLOW IVP SCH (08:45)
[2019-09-03] MEDS: Furosemide 20 MG TAB PO SCH ×2 (09:50→14:52)
[2019-09-03] MEDS: Apixaban 5 MG TAB PO SCH ×2 (09:51→20:22)
[2019-09-03] MEDS: Flecainide 50 MG TAB PO SCH ×2 (09:51→20:22)
[2019-09-03] MEDS: Digoxin 0.125 MG TAB PO SCH (09:51)
[2019-09-03] MEDS: Metoprolol Tartrate 25 MG TAB PO SCH ×2 (09:52→20:22)
--- NOTE | 2019-09-03 10:47 | RAD ---
Exam: Chest one view HISTORY:Chest one view Comparison: 08/27/2019 FINDINGS: Cardiac silhouette:Enlarged cardiac silhouette. Stable sternotomy wires and prosthetic aortic valve. Aorta: Atherosclerosis Pulmonary vessels: Normal Costophrenic angles: Clear LUNGS: Improved aeration of the lung parenchyma. Residual opacities in the lung bases do remain. Pneumothorax: No obvious pneumothorax. Limited evaluation due to overlying soft tissue structures Osseous abnormalities: None IMPRESSION: 1. Improved aeration of the lung parenchyma. Residual opacities in the lung bases do remain.
--- NOTE | 2019-09-03 12:30 | PDOC.HOSPP ---
- Subjective Encounter Date: 09/03/19 Encounter Time: 10:00 Subjective: Ms Stafford is seen for a follow up today for CHF exacerbation. She states she is feeling well with minimal cough although she is still requiring supplemental oxygen. No concerning overnight events. - Objective Vital Signs & Weight: Vital Signs (12 hours) Temp Pulse Resp BP Pulse Ox 09/03/19 11:45 98.6 F 95 20 108/65 93 L 09/03/19 09:51 84 09/03/19 09:20 84 20 104/52 L 93 L 09/03/19 08:45 93 L 09/03/19 05:00 90 20 105/57 L 09/03/19 03:55 98.7 F 84 20 97/55 L 93 L Weight Weight 194 lb 12.8 oz I&O: 09/02/19 09/03/19 09/04/19 06:59 06:59 06:59 Intake Total 960 1510 Output Total 1220 770 Balance -260 740 Result Diagrams: 09/03/19 04:01 09/01/19 03:45 Hospitalist ROS - Medication Medications: Active Medications Generic Name Dose Route Start Last Admin Trade Name Freq PRN Reason Stop Dose Admin Acetaminophen 650 mg 08/27/19 12:53 09/02/19 23:01 Tylenol PO 650 mg Q4H PRN Administration Headache/Fever/Mild Pain (1-3) Apixaban 5 mg 08/29/19 21:00 09/03/19 09:51 Eliquis PO 5 mg BID MANA Administration Digoxin 0.125 mg 09/01/19 09:00 09/03/19 09:51 Lanoxin PO 0.125 mg DAILY MANA Administration Diltiazem HCl 360 mg 09/03/19 09:00 09/03/19 09:52 Cardizem Cd PO 360 mg DAILY MANA Administration Flecainide Acetate 50 mg 09/02/19 09:00 09/03/19 09:51 Tambocor PO 50 mg Q12HR MANA Administration Furosemide 20 mg 08/31/19 14:00 09/03/19 09:50 Lasix PO 20 mg 0900,1400 MANA Administration Guaifenesin 100 mg 08/31/19 20:34 08/31/19 20:53 Robitussin Sf PO 100 mg TIDPRN PRN Administration Cough Magnesium Hydroxide 30 ml 09/01/19 14:26 09/01/19 14:38 Milk Of Magnesium PO 30 ml DAILYPRN PRN Administration Constipation Metoprolol Tartrate 25 mg 09/01/19 21:00 09/03/19 09:52 Lopressor PO 25 mg BID MANA Administration - Exam General Appearance: NAD, awake alert Eye: PERRL, anicteric sclera Neck: supple, symmetric, no lymphadenopathy Heart: no murmur, no gallops, no rubs, irregular Respiratory: CTAB, no wheezes, no rales, no ronchi Gastrointestinal: soft, non-tender, non-distended, normal bowel sounds Extremities: 1+ LE edema Psychiatric: normal affect, normal behavior Hosp A/P (1) Afib Code(s): I48.91 - UNSPECIFIED ATRIAL FIBRILLATION Status: Acute (2) ERNESTO (acute kidney injury) Code(s): N17.9 - ACUTE KIDNEY FAILURE, UNSPECIFIED Status: Acute (3) CHF exacerbation Code(s): I50.9 - HEART FAILURE, UNSPECIFIED Status: Acute - Plan AFib: heart rate controlled with Metroprolol tartrate, cardizem, digoxin, and flecainide, may not need cardioversion ERNESTO: stable, baseline GFR and creatinine CHF Exacerbation: PO lasix, will try to wean off O2 today, chest xray ordered for this morning as there may still be some volume overload Hopefully home soon
--- NOTE | 2019-09-03 15:58 | PDOC.EVN ---
Event Note - Event Note Event Note: Ms. Stafford was seen and examined today and discussed with Nhi Coulter [employer] in follow-up of AFIB with RVR. She does not have any complaints. She was noted to still have some hypoxia, but she is concerned about going home on oxygen due to her who has dementia. On exam, her lungs are essentally clear, with some decreased breath sounds at the bases. Her chest X- ray was reviewed, and it has actually improved since the one on admission. Await further recommendations from Cardiology, and anticipate that she may need to be discharged home on home oxygen., along with home health.
--- NOTE | 2019-09-03 20:22 | PRG ---
DATE OF SERVICE: 09/03/2019 SUBJECTIVE: Ms. Stafford is doing better. She states she feels much better. Her rate is better controlled on metoprolol and Cardizem in addition to digoxin. OBJECTIVE: VITAL SIGNS: Blood pressure 108/65, pulse 95, and temperature afebrile. LUNGS: Minimal crackles at bases bilaterally. HEART: Irregularly irregular. ABDOMEN: Soft, nontender, and nondistended. EXTREMITIES: No edema. IMPRESSION: 1. New onset atrial fibrillation. 2. Status post aortic valve replacement. 3. Diastolic dysfunction. RECOMMENDATIONS: 1. We will give one additional IV dose of Lasix. 2. Continue p.o. Lasix. 3. Continue calcium-channel blockade, beta-david, and digoxin. 4. As long as she is better with improvement in symptoms, it would be okay from my standpoint to discharge home with close outpatient followup. Job ID: [id number]
[2019-09-04 05:02] LABS: #Basophils 0.1 thou/uL (0.0-0.2); #Eosinphils 0.3 thou/uL (0.0-0.7); #Lymphocytes 1.3 thou/uL (1.20-3.40); #Monocytes 0.9 thou/uL (0.11-0.59); #Neutrophils 4.5 thou/uL (1.40-6.50); %Basophils 0.9 % (0.0-1.0); %Eosinophils 3.9 % (0.0-10.0); %Lymphocytes 18.5 % (21.0-51.0); %Monocytes 12.4 % (0.0-10.0); %Neutrophils 64.3 % (42.0-75.0); Hemoglobin 15.2 g/dL (12.0-16.0); Mean Corpuscular HGB CONC 31.6 g/dL (32.0-36.0); Mean Platelet Volume 8.3 fL (7.4-10.4); Platelet Count 193 thou/uL (130-400); Red Blood Cell (RBC) Count 5.07 mill/uL (4.20-5.40); White Blood Cell (WBC) Count 6.9 thou/uL (4.8-10.8)
[2019-09-04 05:16] LABS: Anion Gap 15 mmol/L (10-20); BUN (Urea Nitrogen) 33 mg/dL (9.8-20.1); Calc. Creatinine Clearance 73 mL/min (70-130); Calcium 9.2 mg/dL (7.8-10.44); Carbon Dioxide 26 mmol/L (23-31); Chloride 100 mmol/L (98-107); Estimated GFR-MDRD 63; Glucose 105 mg/dL (83-110); Potassium 3.4 mmol/L (3.5-5.1); Sodium 138 mmol/L (136-145)
[2019-09-04] MEDS: Metoprolol Tartrate 25 MG TAB PO SCH ×2 (09:06→20:53)
[2019-09-04] MEDS: Digoxin 0.125 MG TAB PO SCH (09:06)
[2019-09-04] MEDS: Flecainide 50 MG TAB PO SCH ×2 (09:07→20:53)
[2019-09-04] MEDS: Furosemide 20 MG TAB PO SCH ×2 (09:07→14:00)
[2019-09-04] MEDS: Apixaban 5 MG TAB PO SCH ×2 (09:07→20:53)
[2019-09-04] MEDS ORDERED: Potassium Chloride 20 MEQ TAB PO SCH (09:45)
--- NOTE | 2019-09-04 12:46 | PDOC.HOSPP ---
- Subjective Encounter Date: 09/04/19 Encounter Time: 12:30 Subjective: Mrs Stafford was seen as a follow up CHF exacerbation and afib. She says she feels 100% better this morning and is willing to go home with home health and home oxygen. - Objective Vital Signs & Weight: Vital Signs (12 hours) Temp Pulse Resp BP BP BP Pulse Ox 09/04/19 11:40 98.3 F 77 24 H 142/64 H 92 L 09/04/19 10:21 119/61 121/73 09/04/19 09:02 98.5 F 94 19 123/86 94 L 09/04/19 03:52 98.6 F 94 20 124/75 94 L Weight Weight 196 lb 9.6 oz I&O: 09/03/19 09/04/19 09/05/19 06:59 06:59 06:59 Intake Total 1510 700 Output Total 770 900 Balance 740 -200 Result Diagrams: 09/04/19 04:40 09/04/19 04:40 Hospitalist ROS - Medication Medications: Active Medications Generic Name Dose Route Start Last Admin Trade Name Freq PRN Reason Stop Dose Admin Acetaminophen 650 mg 08/27/19 12:53 09/02/19 23:01 Tylenol PO 650 mg Q4H PRN Administration Headache/Fever/Mild Pain (1-3) Apixaban 5 mg 08/29/19 21:00 09/04/19 09:07 Eliquis PO 5 mg BID MANA Administration Digoxin 0.125 mg 09/01/19 09:00 09/04/19 09:06 Lanoxin PO 0.125 mg DAILY MANA Administration Diltiazem HCl 360 mg 09/03/19 09:00 09/04/19 09:06 Cardizem Cd PO 360 mg DAILY MANA Administration Flecainide Acetate 50 mg 09/02/19 09:00 09/04/19 09:07 Tambocor PO 50 mg Q12HR MANA Administration Furosemide 20 mg 08/31/19 14:00 09/04/19 09:07 Lasix PO 20 mg 0900,1400 MANA Administration Guaifenesin 100 mg 08/31/19 20:34 08/31/19 20:53 Robitussin Sf PO 100 mg TIDPRN PRN Administration Cough Magnesium Hydroxide 30 ml 09/01/19 14:26 09/01/19 14:38 Milk Of Magnesium PO 30 ml DAILYPRN PRN Administration Constipation Metoprolol Tartrate 25 mg 09/01/19 21:00 09/04/19 09:06 Lopressor PO 25 mg BID MANA Administration - Exam General Appearance: NAD, awake alert Eye: PERRL, anicteric sclera Neck: supple, symmetric, no lymphadenopathy Heart: no murmur, no gallops, no rubs, irregular, diminshed peripheral pulses Respiratory: CTAB, no wheezes, no rales, no ronchi Gastrointestinal: soft, non-tender, non-distended, normal bowel sounds Psychiatric: normal affect, normal behavior Hosp A/P (1) Afib Code(s): I48.91 - UNSPECIFIED ATRIAL FIBRILLATION Status: Acute (2) ERNESTO (acute kidney injury) Code(s): N17.9 - ACUTE KIDNEY FAILURE, UNSPECIFIED Status: Acute (3) CHF exacerbation Code(s): I50.9 - HEART FAILURE, UNSPECIFIED Status: Acute - Plan AFib: heart rate controlled with Metroprolol tartrate, cardizem, digoxin, and flecainide, has been changed to longer acting cardizem which she is tolerating well ERNESTO: stable, baseline GFR and creatinine CHF Exacerbation: PO lasix- potassium replaced this morning after it was low possibly from the extra IV dose given yesterday, will arrange home O2 for patient Hopefully home soon once home health and O2 is arranged
--- NOTE | 2019-09-04 16:26 | PDOC.EVN ---
Event Note - Event Note Event Note: Ms. Stafford was seen today in follow-up of AFIB with RVR. Her medical case was discussed with Nhi Coulter NP. She says she feels much better. She denies chest pain or dyspnea. She wants to go home. On exam she has some mild rhonchi, and decreased breath sounds at the bases. Her heart rate has been stable. Arrangements are in progress for home oxygen.
[2019-09-05] MEDS: Apixaban 5 MG TAB PO SCH (08:22)
[2019-09-05] MEDS: Digoxin 0.125 MG TAB PO SCH (08:22)
[2019-09-05] MEDS: Furosemide 20 MG TAB PO SCH ×2 (08:23→13:39)
[2019-09-05] MEDS: Flecainide 50 MG TAB PO SCH (08:23)
[2019-09-05] MEDS: Metoprolol Tartrate 25 MG TAB PO SCH (08:23)
[2019-09-05 11:47] VITALS: BP 123/67; TEMP 97.5
--- NOTE | 2019-09-05 11:54 | PDOC.HOSPP ---
- Subjective Encounter Date: 09/05/19 Encounter Time: 10:45 Subjective: Mrs Stafford is seen as a follow up for CHF exacerbation and afib. She is off of her oxygen during examination and showed no signs of distress. She states her readiness to go home. Nurses were concerned with her increased weakness after being hospitalized so PT is coming to see the patient again before potential discharge. - Objective Vital Signs & Weight: Vital Signs (12 hours) Temp Pulse Resp BP Pulse Ox 09/05/19 11:45 97.5 F L 81 27 H 123/67 90 L 09/05/19 07:10 98.0 F 86 16 143/86 H 93 L 09/05/19 03:18 97.8 F 111 H 18 142/70 H 93 L Weight Weight 196 lb 3.2 oz I&O: 09/04/19 09/05/19 09/06/19 06:59 06:59 06:59 Intake Total 700 1160 Output Total 900 625 Balance -200 535 Result Diagrams: 09/04/19 04:40 09/04/19 04:40 Hospitalist ROS - Medication Medications: Active Medications Generic Name Dose Route Start Last Admin Trade Name Freq PRN Reason Stop Dose Admin Acetaminophen 650 mg 08/27/19 12:53 09/02/19 23:01 Tylenol PO 650 mg Q4H PRN Administration Headache/Fever/Mild Pain (1-3) Apixaban 5 mg 08/29/19 21:00 09/05/19 08:22 Eliquis PO 5 mg BID MANA Administration Digoxin 0.125 mg 09/01/19 09:00 09/05/19 08:22 Lanoxin PO 0.125 mg DAILY MANA Administration Diltiazem HCl 360 mg 09/03/19 09:00 09/05/19 08:22 Cardizem Cd PO 360 mg DAILY MANA Administration Flecainide Acetate 50 mg 09/02/19 09:00 09/05/19 08:23 Tambocor PO 50 mg Q12HR MANA Administration Furosemide 20 mg 08/31/19 14:00 09/05/19 08:23 Lasix PO 20 mg 0900,1400 MANA Administration Guaifenesin 100 mg 08/31/19 20:34 08/31/19 20:53 Robitussin Sf PO 100 mg TIDPRN PRN Administration Cough Magnesium Hydroxide 30 ml 09/01/19 14:26 09/01/19 14:38 Milk Of Magnesium PO 30 ml DAILYPRN PRN Administration Constipation Metoprolol Tartrate 25 mg 09/01/19 21:00 09/05/19 08:23 Lopressor PO 25 mg BID MANA Administration - Exam General Appearance: NAD, awake alert Eye: PERRL ENT: normocephalic atraumatic, moist mucosa Neck: supple, symmetric, no lymphadenopathy Heart: no murmur, no gallops, no rubs, irregular Respiratory: CTAB, no wheezes, no rales, no ronchi Gastrointestinal: soft, non-tender, non-distended, normal bowel sounds Musculoskeletal: generalized weakness Psychiatric: normal affect, normal behavior Hosp A/P (1) Afib Code(s): I48.91 - UNSPECIFIED ATRIAL FIBRILLATION Status: Acute (2) ERNESTO (acute kidney injury) Code(s): N17.9 - ACUTE KIDNEY FAILURE, UNSPECIFIED Status: Acute (3) CHF exacerbation Code(s): I50.9 - HEART FAILURE, UNSPECIFIED Status: Acute - Plan AFib: stable, rate controlled ERNESTO: stable, baseline GFR and creatinine CHF Exacerbation: no longer meets requirements for home O2, stable Home health has been arranged, anticipate discharging patient shortly after PT works with her
[2019-09-05 13:18] VITALS: BMI 38.3
--- NOTE | 2019-09-06 11:52 | DIS ---
DATE OF ADMISSION: 08/27/2019 DATE OF DISCHARGE: 09/05/2019 DISCHARGE DISPOSITION: The patient was discharged with home health, nursing, PT , and OT. The patient lives at home with her . The patient was seen and examined on the day of discharge. Denied any new complaints. INPATIENT CONSULT: Cardiology. CLINICAL COURSE: The patient is a very pleasant 79-year-old female with a history of coronary artery disease, status post CABG and valve replacement. She was noted to have new atrial fibrillation with a rate of 130 when she got to the ER. She had presented to the ER for increased weight gain and shortness of breath initially. While in the hospital, Cardiology worked with her to get her heart rate to a controlled rate through many medication changes and also to diurese her. She had an echo performed while in-house, that showed EF of 55% to 60%. She continued to diurese throughout her stay. She was cleared by Cardiology prior to discharge. However , at that time, she was unable to maintain her oxygen saturation without additional support. By date of discharge though, she was back on room air at 94%. Even with exertion, she was able to maintain her O2 levels to the point that she did not qualify for home O2. It was recommended, through Physical Therapy, that she go to either a skilled facility or a rehab to help regain her strength; however, she adamantly refused and stated that she wanted to go home with her stating that she had a strong support system at home. She did, however, agree to home health with physical therapy which was arranged prior to discharge. FINAL DIAGNOSES: Atrial fibrillation, acute kidney injury, and congestive heart failure exacerbation. DISCHARGE MEDICATIONS: 1. Eliquis 5 mg p.o. b.i.d. 2. Lanoxin 0.125 mg p.o. daily. 3. Diltiazem 360 mg p.o. daily. 4. Flecainide 50 mg p.o. b.i.d. 5. Furosemide 40 mg daily. 6. Lopressor 25 mg p.o. b.i.d. 7. Potassium chloride 20 mEq p.o. daily. DISCHARGE INSTRUCTIONS: The patient was highly encouraged to go to rehab to help regain strength prior to discharge. She stated that she had assistance at home through friends and her and that she was willing to work with physical therapy with home health. She was also instructed over how to take her new medications and to return if she felt that her heart rate was going fast again. She has been also encouraged to monitor for any weight increase or increased shortness of breath. Followup instructions were given to her to follow up with her primary care physician and with Dr. Flores. TIME SPENT: Total time coordinating the discharge of this patient was 35 minutes. Patient discussed with Dr. Martinez. Job ID: [id number]
--- NOTE | 2019-09-06 23:41 | PQF ---
[employer] Print Production Coordinator Crystal Reports Winform ViewerSCHCHEY OSWALD HALIESUNIL [id number] [id number] CLINICAL DOCUMENTATION CLARIFICATION FORM: POST DISCHARGE Addendum to original discharge summary date: ____ Late entry note date: __ DATE: 09/06/19 ATTN: Sunil Coulter Please exercise your independent, professional judgment in responding to the clarification form. Clinical indicators are provided on the bottom of this form for your review Can you please further clarify the diagnosis of the patient? Please check appropriate box(s): [ ] NSTEMI type 1 [ ] NSTEMI due to Demand Ischemia (AMI Type II) [ ] Demand Ischemia without [place] [ X ] Other diagnosis please specify Acute CHF Exacerbation [ ] Unable to determine In addition, please specify: Present on Admission (POA): [ x ] Yes [ ] No [ ] Unable to determine CLINICAL INDICATORS - SIGNS / SYMPTOMS / LABS H and P pg.1- Shortness of breath and increased weight gain H and P pg.1- patient denies productive cough, chest pain H and P pg.2- type 2 metabolic mismatch, demand ischemia Electrocardiogram- Right bundle block, abnormal EKG Laboratory- Troponin- 0.034H, 0.36H, 0.35H RISKS: CHF exacerbation- H and P pg.2 Afib- H and P pg.2 ERNESTO- H and P pg.2 HTN- H and P pg.1 CAD- H and P pg.1 DEMIAN- H and P pg.2 CKD- Hospitalist PN pg.4 TREATMENTS: Electrocardiogram 08/26 Chest X ray 08/26 Echocardiogram 08/[address] Flores O2 Supplementation Troponin Monitoring- Laboratory Aspirin 81mg PO_ MAR Nitroglycerin MAR (This form is maintained as a part of the permanent medical record) 2014 [employer]. All Rights Reserved [email or web address]
== END 2019-09-05 14:50 | disposition home health service (06) | DRG 291 ==
LOC: ERS 10:41 → 2NO 17:04
PROVIDERS: ADMIT Internal Medicine; ATTEND Internal Medicine
DX: I13.0 Hypertensive heart and chronic kidney disease with heart failure and stage 1 through stage 4 chronic kidney disease, or unspecified chronic kidney disease (principal); I50.33 Acute on chronic diastolic (congestive) heart failure; N17.9 Acute kidney failure, unspecified; I25.10 Atherosclerotic heart disease of native coronary artery without angina pectoris; I48.91 Unspecified atrial fibrillation; G47.33 Obstructive sleep apnea (adult) (pediatric); E78.00 Pure hypercholesterolemia, unspecified; Z93.3 Colostomy status; Z95.2 Presence of prosthetic heart valve; Z88.2 Allergy status to sulfonamides; Z88.0 Allergy status to penicillin; Z79.82 Long term (current) use of aspirin; Z79.899 Other long term (current) drug therapy; Z95.1 Presence of aortocoronary bypass graft
CPT/HCPCS: 36415; 71045; 80048; 80053; 82553; 83735; 83880; 84443; 84484; 85007; 85014; 85018; 85025; 85027; 85049; 87635; 93005; 93306; 93798; 96365; 96366; 96372; 96375; 96376; J1160; J1650; J1940; U0003

== ENCOUNTER 2019-09-06 10:43 | Inpatient (IN) | payer MEDICARE ==
[2019-09-06 11:47] LABS: #Basophils 0.1 thou/uL (0.0-0.2); #Eosinphils 0.2 thou/uL (0.0-0.7); #Lymphocytes 2.2 thou/uL (1.20-3.40); #Neutrophils 5.4 thou/uL (1.40-6.50); %Basophils 0.8 % (0.0-1.0); %Lymphocytes 25.1 % (21.0-51.0); %Monocytes 10.7 % (0.0-10.0); %Neutrophils 61.5 % (42.0-75.0); Hemoglobin 15.9 g/dL (12.0-16.0); Mean Corpuscular HGB CONC 31.7 g/dL (32.0-36.0); Mean Corpuscular Hemoglobin 29.6 pg (27.0-31.0); Mean Corpuscular Volume 93.3 fL (78.0-98.0); Mean Platelet Volume 7.9 fL (7.4-10.4); Platelet Count 261 thou/uL (130-400); RBC Distribution Width 13.7 % (11.5-14.5); Red Blood Cell (RBC) Count 5.38 mill/uL (4.20-5.40); White Blood Cell (WBC) Count 8.9 thou/uL (4.8-10.8)
[2019-09-06 11:59] LABS: Bilirubin Negative (Negative); Blood, Urine Negative (Negative); Clarity Turbid (Clear); Glucose, Urine (Dipstick) Normal (Negative); Leukocyte 75 Leu/uL (Negative); Nitrite Negative (Negative); Protein, Urine (Dipstick) Negative (Neg-Trace); RBC/HPF 0-3 HPF (0-3); Urobilinogen 3 mg/dL (Less than 2)
[2019-09-06 12:05] LABS: Bacteria/HPF 4+ HPF (None Seen)
[2019-09-06 12:11] LABS: ALT (SGPT) 69 U/L (8-55); AST (SGOT) 34 U/L (5-34); Albumin 3.7 g/dL (3.4-4.8); Alkaline Phosphatase 375 U/L (40-110); Anion Gap 13 mmol/L (10-20); BUN (Urea Nitrogen) 32 mg/dL (9.8-20.1); Bilirubin, Total 1.4 mg/dL (0.2-1.2); CK (CPK) 50 U/L (29-168); Calc. Creatinine Clearance 0 mL/min (70-130); Calcium 9.4 mg/dL (7.8-10.44); Carbon Dioxide 27 mmol/L (23-31); Chloride 103 mmol/L (98-107); Estimated GFR-MDRD 65; Globulin 3.8 g/dL (2.4-3.5); Glucose 116 mg/dL (83-110); Lipase 62 U/L (8-78); Magnesium 2.2 mg/dL (1.6-2.6); Potassium 3.8 mmol/L (3.5-5.1); Protein, Total 7.5 g/dL (6.0-8.3); Sodium 139 mmol/L (136-145)
[2019-09-06 12:31] LABS: CKMB 1.5 ng/mL (0-6.6)
[2019-09-06] MEDS ORDERED: Aspirin Chewable 81 MG TAB ONE (12:42)
[2019-09-06 13:59] LABS: Phosphorus 3.7 mg/dL (2.3-4.7)
[2019-09-06] MEDS ORDERED: Calcium Carbonate 500 MG ChewTAB PO PRN (14:03)
[2019-09-06] MEDS ORDERED: Flecainide 50 MG TAB PO SCH (14:15)
[2019-09-06] MEDS ORDERED: Potassium Chloride 20 MEQ TAB PO SCH (14:15)
[2019-09-06] MEDS ORDERED: Furosemide 40 MG TAB PO SCH (14:15)
[2019-09-06] MEDS ORDERED: Apixaban 5 MG TAB PO SCH (14:15)
[2019-09-06] MEDS ORDERED: Digoxin 0.125 MG TAB PO SCH (14:15)
--- NOTE | 2019-09-06 14:31 | HP ---
PRIMARY CARE PHYSICIAN: [facility]. The patient follows a physician in [place]. CHIEF COMPLAINT: Generalized weakness. HISTORY OF PRESENT ILLNESS: The patient is a 79-year-old female with coronary artery disease, congestive heart failure, and atrial fibrillation, presented to the emergency room with generalized weakness. The patient was admitted to this facility for approximately 10 days. She was discharged yesterday. She was found to have diastolic heart failure exacerbation along with atrial fibrillation with rapid ventricular response. She was started on anticoagulation. Symptoms improved with diuresis. She was advised to go to group home or rehab. However, she refused and instead went home. This morning, she was unable to get out of her bed. She felt weak. She denies new shortness of breath or chest pain. She was on anticoagulation during the last hospitalization. She has not picked up any prescription yet. No new focal deficit reported. She denies any fever or sick contacts. PAST MEDICAL HISTORY: 1. Coronary artery disease, status post CABG. 2. Atrial fibrillation. 3. Chronic diastolic heart failure. 4. Hypertension. 5. History of aortic valve replacement. 6. Obstructive sleep apnea. PAST SURGICAL HISTORY: 1. Colectomy with colostomy for colon cancer. 2. Coronary artery bypass grafting. 3. Aortic valve replacement. ALLERGIES: THE PATIENT IS ALLERGIC TO PENICILLIN AND SULFA. CURRENT HOME MEDICATIONS: The patient took metoprolol this morning. She has not picked up the prescription for other medications, which was sent to the pharmacy yesterday. She denies any other changes in her medications. SOCIAL HISTORY: She currently lives at home with her . She is full code. The primary decision maker is Lakesha. FAMILY HISTORY: Positive for mother with congestive heart failure. REVIEW OF SYSTEMS: All other review of systems was reviewed and was found negative. PHYSICAL EXAMINATION: VITAL SIGNS: Temperature 98.2, respirations of 24, pulse rate of 105, blood pressure of 110/78 with O2 saturation 94% on room air. GENERAL: A 79-year-old female, in no apparent distress. HEENT: Head, atraumatic and normocephalic. Sclerae anicteric. Moist mucous membranes. No oral lesion. NECK: Supple. No JVD appreciated. No carotid bruit. LUNGS: Clear to auscultation bilaterally with scattered rales at bases. There were no rhonchi or wheezing. No accessory muscle use. HEART: S1 and S2 present. Irregularly irregular. No rubs or gallops. ABDOMEN: Soft, nontender, bowel sounds present. EXTREMITIES: 1+ edema in bilateral lower extremity. No calf tenderness. SKIN: Warm and dry. LYMPH NODES: No palpable lymph nodes in the neck. PERIPHERAL VASCULAR: Radial pulses palpable bilaterally. MUSCULOSKELETAL: No joint swelling or tenderness. LABORATORY FINDINGS: CBC showed WBC of 8.9 with hemoglobin 15.9, hematocrit 50.2, and platelets 261. Chemistry showed sodium 139, potassium 3.8, chloride of 103, bicarb 27, BUN 32, and creatinine 0.85. BNP was 178, it was 468 ten days ago. Troponin 0.041 with normal CK-MB. Total bilirubin was 1.4. It was 1.6 last week. Lipase was normal. Urinalysis showed 4 to 6 wbc with 4+ bacteria. Chest x-ray by my review was negative for infiltrate or edema. EKG by my review showed atrial fibrillation with left axis deviation. IMPRESSION: 1. Generalized weakness, multifactorial. 2. Suspected urinary tract infection. 3. Chronic atrial fibrillation. 4. Chronic diastolic heart failure. 5. Chronically elevated troponin. 6. Abnormal LFTs, probably secondary to congestive heart failure. 7. Coronary artery disease. 8. History of aortic valve replacement. 9. Obstructive sleep apnea. 10. Chronic kidney disease, stage 3. 11. Penicillin and sulfa allergy. 12. Physical deconditioning. PLAN: The patient will be monitored on the telemetry unit. Serial troponins will be obtained. Physical Therapy and Occupational Therapy will be consulted. We will consult heel caser for inpatient rehabilitation versus group home facility. We will resume home medications. Check folic acid and vitamin B12. The patient was counseled on congestive heart failure and importance of medication compliance. The patient understands the above plan of care. Job ID: [id number]
--- NOTE | 2019-09-06 15:11 | RAD ---
PORTABLE CHEST 1 VIE: DATE: 09/06/2019. TIME: 11:52 AM. HISTORY: Weakness. COMPARISON: 09/03/2019. FINDINGS/IMPRESSION: Changes of median sternotomy are again seen. The heart is enlarged. The lungs are well expanded wit hout lobar consolidation, pneumothoraces, beba pulmonary edema, or large effusions. POS: [facility]
[2019-09-06 15:21] VITALS: BMI 38.5
[2019-09-06 15:40] LABS: CKMB 3.2 ng/mL (0-6.6)
[2019-09-06] MEDS: cefTRIAXone\\ROCEPHIN 1 GM in Sodium Chloride 0.9% 100 ML IVPB SCH (15:48)
[2019-09-06 19:18] LABS: CKMB 3.3 ng/mL (0-6.6)
[2019-09-06] MEDS: Famotidine 20 MG TAB PO SCH (21:39)
[2019-09-06] MEDS: Flecainide 50 MG TAB PO SCH (21:39)
[2019-09-06] MEDS: Metoprolol Tartrate 25 MG TAB PO SCH (21:39)
[2019-09-06] MEDS: Apixaban 5 MG TAB PO SCH (21:39)
[2019-09-07 05:01] LABS: #Basophils 0.1 thou/uL (0.0-0.2); #Eosinphils 0.3 thou/uL (0.0-0.7); #Lymphocytes 2.1 thou/uL (1.20-3.40); #Monocytes 0.8 thou/uL (0.11-0.59); #Neutrophils 4.6 thou/uL (1.40-6.50); %Basophils 0.8 % (0.0-1.0); %Eosinophils 4.3 % (0.0-10.0); %Lymphocytes 26.3 % (21.0-51.0); %Neutrophils 58.6 % (42.0-75.0); Hemoglobin 15.1 g/dL (12.0-16.0); Mean Corpuscular HGB CONC 32.8 g/dL (32.0-36.0); Mean Corpuscular Volume 94.7 fL (78.0-98.0); Mean Platelet Volume 8.3 fL (7.4-10.4); Platelet Count 270 thou/uL (130-400); RBC Distribution Width 13.8 % (11.5-14.5); Red Blood Cell (RBC) Count 4.86 mill/uL (4.20-5.40); White Blood Cell (WBC) Count 7.8 thou/uL (4.8-10.8)
[2019-09-07 05:24] LABS: ALT (SGPT) 55 U/L (8-55); AST (SGOT) 34 U/L (5-34); Albumin 3.4 g/dL (3.4-4.8); Alkaline Phosphatase 341 U/L (40-110); Anion Gap 13 mmol/L (10-20); BUN (Urea Nitrogen) 29 mg/dL (9.8-20.1); Bilirubin, Total 1.5 mg/dL (0.2-1.2); Calc. Creatinine Clearance 81 mL/min (70-130); Calcium 9.2 mg/dL (7.8-10.44); Carbon Dioxide 25 mmol/L (23-31); Chloride 103 mmol/L (98-107); Estimated GFR-MDRD 69; Globulin 3.5 g/dL (2.4-3.5); Glucose 100 mg/dL (83-110); Magnesium 2.2 mg/dL (1.6-2.6); Protein, Total 6.9 g/dL (6.0-8.3); Sodium 137 mmol/L (136-145)
[2019-09-07] MEDS: Famotidine 20 MG TAB PO SCH ×2 (08:13→20:07)
[2019-09-07] MEDS: Multivit, Therapeutic 1 TAB PO SCH (08:13)
[2019-09-07] MEDS: Furosemide 40 MG TAB PO SCH (08:13)
[2019-09-07] MEDS: Cyanocobalamin (Vitamin B-12) 1,000 MCG TAB PO SCH (08:13)
[2019-09-07] MEDS: Flecainide 50 MG TAB PO SCH ×2 (08:13→20:07)
[2019-09-07] MEDS: Metoprolol Tartrate 25 MG TAB PO SCH ×2 (08:13→20:07)
[2019-09-07] MEDS: Apixaban 5 MG TAB PO SCH ×2 (08:13→20:07)
[2019-09-07] MEDS: Digoxin 0.125 MG TAB PO SCH (08:13)
[2019-09-07] MEDS: Folic Acid 1 MG TAB PO SCH ×2 (08:14→20:07)
[2019-09-07] MEDS: Potassium Chloride 20 MEQ TAB PO SCH (08:16)
[2019-09-07] MEDS: cefTRIAXone\\ROCEPHIN 1 GM in Sodium Chloride 0.9% 100 ML IVPB SCH (14:22)
--- NOTE | 2019-09-07 14:53 | ULT ---
RIGHT UPPER QUADRANT ULTRASOUND: 09/07/19 HISTORY: Abnormal LFTs. FINDINGS: The liver demonstrates homogeneous echotexture without focal mass or intrahepatic ductal dilatation. The gallbladder is distended measuring 13.8 cm in length and contains echogenic material consistent w ith sludge but no shadowing gallstones or gallbladder wall thickening. The common bile duct is dilate d measuring 1.9 cm. A shadowing calculus is seen in the distal common bile duct. No pericholecystic f luid is seen. The right kidney and visualized portions of the pancreas (still not seen) appear normal. No free flui d is noted in Cadena's pouch. IMPRESSION: 1. Distended gallbladder with sludge. 2. Dilated common bile duct with choledocholithiasis. POS: OFF
--- NOTE | 2019-09-07 18:41 | PDOC.HOSPP ---
- Subjective Encounter Date: 09/07/19 Encounter Time: 15:00 Subjective: Patient seen and examined for Gen weakness. No CP or SOB. No new complaints. No overnight events - Objective Vital Signs & Weight: Vital Signs (12 hours) Temp Pulse Pulse Pulse Resp BP BP 09/07/19 16:00 98.5 F 72 20 09/07/19 12:00 98.1 F 72 18 09/07/19 10:48 84 110/66 100/65 09/07/19 08:13 81 09/07/19 08:10 81 18 09/07/19 08:08 81 83 130/76 117/73 09/07/19 08:00 97.8 F BP Pulse Ox 09/07/19 16:00 114/68 09/07/19 12:00 103/67 95 09/07/19 10:48 09/07/19 08:13 09/07/19 08:10 130/76 09/07/19 08:08 09/07/19 08:00 Weight Weight 197 lb 8 oz I&O: 09/06/19 09/07/19 09/08/19 06:59 06:59 06:59 Intake Total 1340 1050 Output Total 1075 700 Balance 265 350 Result Diagrams: 09/08/19 10:50 09/08/19 10:50 EKG Reviewed by me: Yes (Tele - Afib) Hospitalist ROS - Review of Systems Respiratory: denies: cough, dry, shortness of breath, hemoptysis, SOB with excertion, pleuritic pain, sputum, wheezing, other Cardiovascular: denies: chest pain, palpitations, orthopnea, paroxysmal noc. dyspnea, edema, light headedness, other - Medication Medications: Active Medications Generic Name Dose Route Start Last Admin Trade Name Freq PRN Reason Stop Dose Admin Apixaban 5 mg 09/06/19 21:00 09/07/19 08:13 Eliquis PO 5 mg BID MANA Administration Cyanocobalamin 1,000 mcg 09/07/19 09:00 09/07/19 08:13 Vitamin B-12 PO 1,000 mcg DAILY MANA Administration Digoxin 0.125 mg 09/07/19 09:00 09/07/19 08:13 Lanoxin PO 0.125 mg DAILY MANA Administration Diltiazem HCl 180 mg 09/06/19 21:00 09/07/19 08:15 Cardizem Cd PO 180 mg BID MANA Administration Famotidine 20 mg 09/06/19 21:00 09/07/19 08:13 Pepcid PO 20 mg BID MANA Administration Flecainide Acetate 50 mg 09/06/19 21:00 09/07/19 08:13 Tambocor PO 50 mg Q12HR MANA Administration Folic Acid 1 mg 09/07/19 09:00 09/07/19 08:14 Folvite PO 1 mg BID MANA Administration Furosemide 40 mg 09/07/19 09:00 09/07/19 08:13 Lasix PO 40 mg DAILY MANA Administration Ceftriaxone Sodium 1 gm/ 100 mls @ 200 mls/hr 09/06/19 15:00 09/07/19 14:22 Sodium Chloride IVPB 100 mls 1500 MANA Administration Metoprolol Tartrate 25 mg 09/06/19 21:00 09/07/19 08:13 Lopressor PO 25 mg BID MANA Administration Multivitamins 1 tab 09/07/19 09:00 09/07/19 08:13 Theragran PO 1 tab DAILY MANA Administration Potassium Chloride 20 meq 09/07/19 09:00 09/07/19 08:16 K-Dur PO 20 meq DAILY MANA Administration - Exam General Appearance: NAD Neck: supple, no JVD Heart: RRR, no gallops Respiratory: no wheezes, no rales Gastrointestinal: non-tender, non-distended Extremities: no cyanosis Hosp A/P - Plan 1. Generalized weakness, multifactorial. 2. Suspected urinary tract infection. 3. Chronic atrial fibrillation. 4. Chronic diastolic heart failure. 5. Chronically elevated troponin. 6. Abnormal LFTs, probably secondary to congestive heart failure. r/o choledocolithiases. 7. Coronary artery disease. 8. History of aortic valve replacement. 9. Obstructive sleep apnea. 10. Chronic kidney disease, stage 3. 11. Penicillin and sulfa allergy. 12. Physical deconditioning. 13. Folic acid def. PLAN: Cont Cardizem/Metoprolol Cont Anticoag Replace Folic acid Cont other meds Await RUQ ultrasound Await placement
[2019-09-07] MEDS ORDERED: Melatonin 3 MG TAB PO PRN (18:52)
[2019-09-07] MEDS: Melatonin 3 MG TAB PO PRN (20:07)
[2019-09-08] MEDS: Apixaban 5 MG TAB PO SCH (09:00)
[2019-09-08] MEDS: Famotidine 20 MG TAB PO SCH ×2 (09:00→20:24)
[2019-09-08] MEDS: Multivit, Therapeutic 1 TAB PO SCH (09:01)
[2019-09-08] MEDS: Metoprolol Tartrate 25 MG TAB PO SCH ×2 (09:01→20:25)
[2019-09-08] MEDS: Digoxin 0.125 MG TAB PO SCH (09:01)
[2019-09-08] MEDS: Furosemide 40 MG TAB PO SCH (09:01)
[2019-09-08] MEDS: Flecainide 50 MG TAB PO SCH ×2 (09:01→20:24)
[2019-09-08] MEDS: Potassium Chloride 20 MEQ TAB PO SCH (09:01)
[2019-09-08] MEDS: Cyanocobalamin (Vitamin B-12) 1,000 MCG TAB PO SCH (09:02)
[2019-09-08] MEDS: Folic Acid 1 MG TAB PO SCH ×2 (09:02→20:25)
[2019-09-08 11:02] LABS: #Basophils 0.1 thou/uL (0.0-0.2); #Eosinphils 0.3 thou/uL (0.0-0.7); #Monocytes 0.7 thou/uL (0.11-0.59); %Basophils 0.7 % (0.0-1.0); %Eosinophils 3.6 % (0.0-10.0); %Lymphocytes 24.6 % (21.0-51.0); %Monocytes 8.3 % (0.0-10.0); %Neutrophils 62.7 % (42.0-75.0); Hemoglobin 16.1 g/dL (12.0-16.0); Mean Corpuscular HGB CONC 31.6 g/dL (32.0-36.0); Mean Corpuscular Hemoglobin 30.2 pg (27.0-31.0); Mean Corpuscular Volume 95.6 fL (78.0-98.0); Mean Platelet Volume 7.8 fL (7.4-10.4); Platelet Count 336 thou/uL (130-400); RBC Distribution Width 13.6 % (11.5-14.5); Red Blood Cell (RBC) Count 5.33 mill/uL (4.20-5.40)
[2019-09-08 11:23] LABS: ALT (SGPT) 43 U/L (8-55); AST (SGOT) 23 U/L (5-34); Albumin 3.7 g/dL (3.4-4.8); Alkaline Phosphatase 288 U/L (40-110); Anion Gap 15 mmol/L (10-20); BUN (Urea Nitrogen) 23 mg/dL (9.8-20.1); Bilirubin, Total 1.1 mg/dL (0.2-1.2); Calc. Creatinine Clearance 74 mL/min (70-130); Calcium 9.2 mg/dL (7.8-10.44); Carbon Dioxide 26 mmol/L (23-31); Chloride 106 mmol/L (98-107); Estimated GFR-MDRD 64; Globulin 3.6 g/dL (2.4-3.5); Glucose 161 mg/dL (83-110); Potassium 4.1 mmol/L (3.5-5.1); Protein, Total 7.3 g/dL (6.0-8.3); Sodium 143 mmol/L (136-145)
--- NOTE | 2019-09-08 12:29 | PDOC.HOSPP ---
- Subjective Encounter Date: 09/08/19 Subjective: patient seen on f/u for generalize weakness and uti. during my evaluation pt refers feeling better and was aox3, but nurse reports patient is having episode of disorientation - Objective Vital Signs & Weight: Vital Signs (12 hours) Temp Pulse Resp BP Pulse Ox 09/08/19 09:01 80 09/08/19 08:58 97.9 F 80 16 142/78 H 95 09/08/19 03:55 93 L 09/08/19 03:45 97.7 F 85 18 107/71 93 L Weight Weight 195 lb 8 oz I&O: 09/07/19 09/08/19 09/09/19 06:59 06:59 06:59 Intake Total 1340 1350 Output Total 1075 1150 Balance 265 200 Result Diagrams: 09/08/19 10:50 09/08/19 10:50 Hospitalist ROS - Review of Systems All other systems reviewed; all pertinent +/- noted in HPI/Subj - Medication Medications: Active Medications Generic Name Dose Route Start Last Admin Trade Name Lio PRN Reason Stop Dose Admin Apixaban 5 mg 09/06/19 21:00 09/08/19 09:00 Eliquis PO 5 mg BID MANA Administration Cyanocobalamin 1,000 mcg 09/07/19 09:00 09/08/19 09:02 Vitamin B-12 PO 1,000 mcg DAILY MANA Administration Digoxin 0.125 mg 09/07/19 09:00 09/08/19 09:01 Lanoxin PO 0.125 mg DAILY MANA Administration Diltiazem HCl 180 mg 09/06/19 21:00 09/08/19 09:02 Cardizem Cd PO 180 mg BID MANA Administration Famotidine 20 mg 09/06/19 21:00 09/08/19 09:00 Pepcid PO 20 mg BID MANA Administration Flecainide Acetate 50 mg 09/06/19 21:00 09/08/19 09:01 Tambocor PO 50 mg Q12HR MANA Administration Folic Acid 1 mg 09/07/19 09:00 09/08/19 09:02 Folvite PO 1 mg BID MANA Administration Furosemide 40 mg 09/07/19 09:00 09/08/19 09:01 Lasix PO 40 mg DAILY MANA Administration Ceftriaxone Sodium 1 gm/ 100 mls @ 200 mls/hr 09/06/19 15:00 09/07/19 14:22 Sodium Chloride IVPB 100 mls 1500 MANA Administration Melatonin 3 mg 09/07/19 18:41 09/07/19 20:07 Melatonin PO 3 mg HS PRN Administration Insomnia Metoprolol Tartrate 25 mg 09/06/19 21:00 09/08/19 09:01 Lopressor PO 25 mg BID MANA Administration Multivitamins 1 tab 09/07/19 09:00 09/08/19 09:01 Theragran PO 1 tab DAILY MANA Administration Potassium Chloride 20 meq 09/07/19 09:00 09/08/19 09:01 K-Dur PO 20 meq DAILY MANA Administration - Exam General Appearance: NAD, awake alert Eye: PERRL, anicteric sclera ENT: normocephalic atraumatic, no oropharyngeal lesions Neck: supple, symmetric, no JVD Heart: RRR, no murmur, no gallops Respiratory: CTAB, no wheezes, no rales Gastrointestinal: soft, non-tender, non-distended Extremities: no cyanosis, no clubbing, no edema Skin: normal turgor, no lesions Neurological: cranial nerve grossly intact, normal sensation to touch Musculoskeletal: normal tone, normal strength Psychiatric: normal affect, normal behavior Hosp A/P - Plan generalize weakness uti chronic afib cad alesha ckd stage 3 plan continue home meds continue anticoagulation and rate control awaiting home placement continue pt ot patient with abdominal sonogram showing choledocholelithiasis, patient is asymptomatic but bili has increased from yesterday, will repeat bmp for today and get gi consult continue rocephin for 3 days
[2019-09-08] MEDS: cefTRIAXone\\ROCEPHIN 1 GM in Sodium Chloride 0.9% 100 ML IVPB SCH (15:14)
[2019-09-08] MEDS: Melatonin 3 MG TAB PO PRN (20:24)
--- NOTE | 2019-09-09 00:10 | CON ---
DATE OF CONSULTATION: 09/08/2019 REASON FOR CONSULTATION: Abnormal GI imaging showing choledocholithiasis. CONSULTING PHYSICIAN: Dr. Schuyler Timmons. HISTORY OF PRESENT ILLNESS: The patient is a 79-year-old female with past medical history of coronary artery disease; congestive heart failure; atrial fibrillation; hypertension; obstructive sleep apnea; chronic kidney disease stage 3; aortic valve replacement; and colon cancer, status post resection, who initially presented to the hospital with generalized weakness. The patient was admitted to the hospital on September 06, 2019, with complaints of generalized weakness where the patient was unable to extricate herself from her bed. This was associated with mild dizziness per patient, but otherwise was doing well. She was ultimately admitted to the hospital for further evaluation and during the course of this admission, was being treated for continued congestive heart failure exacerbation. She had been responding well to diuretic management, but underwent a right upper quadrant ultrasound secondary to an elevated alkaline phosphatase and a mildly elevated total bilirubin that was seen on labs yesterday. On that particular study, it did show dilation of the common bile duct to 1.9 cm as well as a shadowing calculus within the distal common bile duct consistent with choledocholithiasis. Today, the patient states that she is doing well without further complaints and is feeling much better when compared to on admission. However, she currently denies any nausea, vomiting, fevers, chills, hematemesis, melena, hematochezia, abdominal pain, dysphagia, odynophagia, diarrhea, or constipation. Essentially, the patient at this time is relatively asymptomatic. REVIEW OF SYSTEMS: A 10-category review of systems was obtained with all responses negative except for the pertinent positives as listed in HPI. PAST MEDICAL HISTORY: As per HPI. PAST SURGICAL HISTORY: Colectomy with colostomy for colon cancer, aortic valve replacement, and coronary artery bypass graft. SOCIAL HISTORY: Denies any tobacco, alcohol, or illicit drug use, but quit using tobacco a number of years in the past. FAMILY HISTORY: Denies any GI malignancies. OUTPATIENT MEDICATIONS: Reviewed. INPATIENT MEDICATIONS: Reviewed. ALLERGIES: PENICILLIN AND SULFA. PHYSICAL EXAMINATION: VITAL SIGNS: Temperature 97.3, pulse 59, blood pressure 137/81, respiratory rate 18, saturating 95% on room air. GENERAL: The patient was lying in bed, in no acute distress. Alert and oriented x3. HEENT: Normocephalic and atraumatic. NECK: Supple. No JVD or scleral icterus noted. CARDIOVASCULAR: Distant heart sounds, but regular rate and rhythm with no discernible murmurs, gallops, or rubs. RESPIRATORY: Clear to auscultation bilaterally with no wheezes or rales. ABDOMEN: Normoactive bowel sounds. Soft, nontender, and nondistended. EXTREMITIES: No cyanosis, clubbing, or edema. LABORATORY DATA: CBC with a white blood cell count of 8, hemoglobin 16.1, hematocrit 50.9, platelets 336. Chemistry with a sodium of 143, potassium 4.1, chloride 106, CO2 of 26, BUN 23, creatinine 0.86, glucose 161. AST 23, ALT 43, alkaline phosphatase 288, total bilirubin 1.1. IMAGING DATA: The patient underwent abdominal ultrasound on September 07, 2019, which showed distention of the gallbladder to 13.8 cm in length and containing echogenic material consistent with sludge, but no evidence of gallstones. The common bile duct was also dilated measuring 1.9 cm as well as a shadowing calculus seen in the distal common bile duct. ASSESSMENT AND PLAN: The patient is a 79-year-old female with past medical history of coronary artery disease; congestive heart failure; atrial fibrillation, on anticoagulation; hypertension; obstructive sleep apnea; chronic kidney disease stage 3; aortic valve replacement; and colonic adenocarcinoma, status post resection, initially presenting with generalized weakness, which is now resolved, but with abnormal GI imaging showing dilation of the extrahepatic biliary tree and choledocholithiasis. Possible choledocholithiasis/abnormal GI imaging. The patient was initially admitted to the hospital for generalized weakness after being hospitalized at [facility] for approximately 10 days for congestive heart failure exacerbation. On this admission, it was felt that she had further exacerbation of her heart failure and responded well to diuretic management. During her last hospitalization, the original plan was to send her to a long term facility for physical therapy, but the patient had refused and instead went home. However, during the course of this hospitalization, she had a mildly elevated total bilirubin and an elevation of her alkaline phosphatase, which prompted the evaluation with an abdominal ultrasound. The abdominal ultrasound is now showing dilation of her common bile duct to 1.9 cm along with the presence of a stone in the distal common bile duct consistent with choledocholithiasis. However, she has had normalization of her total bilirubin and has normal AST and ALT, making an obstructive-type process unlikely. She is also currently asymptomatic, which makes the presence of choledocholithiasis a little less likely as well. At this point, the diagnosis of choledocholithiasis is in question and does need further evaluation at this time. RECOMMENDATIONS: 1. I will place an order for MRCP today for further evaluation of the biliary tree and possible choledocholithiasis. 2. Would hold the patient's Eliquis for now in case ERCP is indicated. 3. Would continue to trend her LFTs daily for signs of resolution and possible congestive hepatopathy. 4. Continue diuretic management as you are doing for her heart failure. 5. If the patient does indeed have choledocholithiasis on MRCP, then would possibly plan for ERCP on Monday once her Eliquis is washed out to decrease the risk of bleeding during the procedure. We will continue to follow. Please call with any questions. Job ID: [id number]
[2019-09-09] MEDS: Cyanocobalamin (Vitamin B-12) 1,000 MCG TAB PO SCH (08:40)
[2019-09-09] MEDS: Flecainide 50 MG TAB PO SCH ×2 (08:40→20:51)
[2019-09-09] MEDS: Famotidine 20 MG TAB PO SCH ×2 (08:40→20:51)
[2019-09-09] MEDS: Digoxin 0.125 MG TAB PO SCH (08:40)
[2019-09-09] MEDS: Folic Acid 1 MG TAB PO SCH ×2 (08:41→20:50)
[2019-09-09] MEDS: Furosemide 40 MG TAB PO SCH (08:41)
[2019-09-09] MEDS: Metoprolol Tartrate 25 MG TAB PO SCH ×2 (08:41→20:52)
[2019-09-09] MEDS: Multivit, Therapeutic 1 TAB PO SCH (08:41)
[2019-09-09] MEDS: Potassium Chloride 20 MEQ TAB PO SCH (08:41)
[2019-09-09 10:01] LABS: #Basophils 0.1 thou/uL (0.0-0.2); #Eosinphils 0.4 thou/uL (0.0-0.7); #Lymphocytes 2.4 thou/uL (1.20-3.40); #Monocytes 0.5 thou/uL (0.11-0.59); #Neutrophils 5.2 thou/uL (1.40-6.50); %Basophils 0.6 % (0.0-1.0); %Eosinophils 4.8 % (0.0-10.0); %Lymphocytes 27.6 % (21.0-51.0); %Neutrophils 61.1 % (42.0-75.0); Hemoglobin 15.6 g/dL (12.0-16.0); Mean Corpuscular HGB CONC 32.9 g/dL (32.0-36.0); Mean Corpuscular Hemoglobin 30.9 pg (27.0-31.0); Mean Corpuscular Volume 93.9 fL (78.0-98.0); Mean Platelet Volume 7.7 fL (7.4-10.4); Platelet Count 362 thou/uL (130-400); RBC Distribution Width 13.6 % (11.5-14.5); Red Blood Cell (RBC) Count 5.07 mill/uL (4.20-5.40); White Blood Cell (WBC) Count 8.5 thou/uL (4.8-10.8)
[2019-09-09 10:22] LABS: ALT (SGPT) 33 U/L (8-55); AST (SGOT) 18 U/L (5-34); Albumin 3.6 g/dL (3.4-4.8); Alkaline Phosphatase 258 U/L (40-110); Anion Gap 15 mmol/L (10-20); BUN (Urea Nitrogen) 28 mg/dL (9.8-20.1); Bilirubin, Total 0.9 mg/dL (0.2-1.2); Calc. Creatinine Clearance 58 mL/min (70-130); Calcium 9.2 mg/dL (7.8-10.44); Carbon Dioxide 23 mmol/L (23-31); Chloride 105 mmol/L (98-107); Estimated GFR-MDRD 49; Globulin 3.6 g/dL (2.4-3.5); Glucose 163 mg/dL (83-110); Lipase 97 U/L (8-78); Protein, Total 7.2 g/dL (6.0-8.3); Sodium 139 mmol/L (136-145)
--- NOTE | 2019-09-09 10:37 | PRG ---
DATE OF SERVICE: 09/09/2019 REASON FOR CONSULTATION: Abnormal GI imaging showing choledocholithiasis. SUBJECTIVE: Per nursing staff, the patient did not have any acute events or problems overnight, although she does exhibit a mild degree of confusion. Upon speaking with the patient today, she states that "this is the best I felt in the last 2 weeks." Currently, she denies any nausea, vomiting, fevers, chills, abdominal pain, hematemesis, melena, hematochezia, dysphagia, or odynophagia. OBJECTIVE: VITAL SIGNS: Temperature 97.8, pulse 67, blood pressure 112/70, respiratory rate 17, saturating 95% on room air. GENERAL: The patient is lying in bed, in no acute distress. Alert and oriented x3. CARDIOVASCULAR: Irregularly irregular rhythm with no discernible murmurs, gallops, or rubs. RESPIRATORY: Clear to auscultation bilaterally. ABDOMEN: Normoactive bowel sounds. Soft, nontender, nondistended. Ostomy located in the right lower quadrant with the appliance showing no signs of skin or/wound breakdown. EXTREMITIES: No cyanosis or clubbing. Mild nonpitting edema of the bilateral lower extremities. LABORATORY DATA: CBC with a white blood cell count of 8.5, hemoglobin 15.6, hematocrit 47.6, platelets 362. Chemistry pending at this time. IMAGING DATA: MRCP is pending at this time. ASSESSMENT AND PLAN: The patient is a 79-year-old female with past medical history of coronary artery disease, congestive heart failure, atrial fibrillation on anticoagulation, hypertension, obstructive sleep apnea, chronic kidney disease stage 3, aortic valve replacement, colonic adenocarcinoma status post resection and ostomy formation, who initially presented with generalized weakness, but with a slightly elevated total bilirubin during this admission, had an ultrasound showing dilation of the extrahepatic biliary tree and possible choledocholithiasis. Possible choledocholithiasis/abnormal GI imaging. During the course of this patient's hospitalization, she had one incident of an elevated bilirubin to 1.5, which has since resolved, but it prompted the obtaining a right upper quadrant ultrasound, which showed dilation of the common bile duct to 1.9 cm along with the presence of a stone in the distal common bile duct consistent with choledocholithiasis. However, she currently has no symptoms that maybe indicative of biliary obstruction nor does she have any elevated LFTs at this time to suggest choledocholithiasis with obstruction. MRCP is to be performed today for further evaluation given the low sensitivity and specificity of ultrasound to detect choledocholithiasis. RECOMMENDATIONS: 1. The patient is scheduled for MRCP later today. We will follow up on the results. 2. Would continue to hold the patient's Eliquis in case ERCP is indicated for tomorrow. 3. Continue to trend her LFTs daily. 4. Continue diuretic management for heart failure. 5. If the patient does indeed have choledocholithiasis on MRCP and would probably plan for ERCP tomorrow, once the Eliquis is washed out to decrease risk of bleeding during the procedure. We will continue to follow. Please call with any questions. Job ID: [id number]
[2019-09-09] MEDS: cefTRIAXone\\ROCEPHIN 1 GM in Sodium Chloride 0.9% 100 ML IVPB SCH (15:23)
--- NOTE | 2019-09-09 18:44 | PDOC.HOSPP ---
- Subjective Encounter Date: 09/09/19 Encounter Time: 16:30 Subjective: Patient seen and examined for Gen weakness. No N/V. Intermittent confusion per RN. No new complaints. No overnight events - Objective Vital Signs & Weight: Vital Signs (12 hours) Temp Pulse Pulse Resp BP BP Pulse Ox 09/09/19 16:07 97.8 F 67 18 111/61 95 09/09/19 11:57 97.6 F 63 19 119/69 95 09/09/19 11:05 65 110/69 09/09/19 08:45 95 09/09/19 08:40 67 09/09/19 08:35 97.8 F 67 17 112/70 95 Pulse Ox Pulse Ox 09/09/19 16:07 09/09/19 11:57 09/09/19 11:05 91 L 91 L 09/09/19 08:45 09/09/19 08:40 09/09/19 08:35 Weight Weight 191 lb 6.4 oz I&O: 09/08/19 09/09/19 09/10/19 06:59 06:59 06:59 Intake Total 1350 1575 600 Output Total 1150 950 650 Balance 200 625 -50 Result Diagrams: 09/09/19 09:42 09/09/19 09:42 EKG Reviewed by me: Yes (Tele Afib) Hospitalist ROS - Review of Systems Cardiovascular: denies: chest pain, palpitations, orthopnea, paroxysmal noc. dyspnea, edema, light headedness, other Gastrointestinal: denies: nausea, vomiting, abdominal pain, diarrhea, constipation, melena, hematochezia, other - Medication Medications: Active Medications Generic Name Dose Route Start Last Admin Trade Name Freq PRN Reason Stop Dose Admin Apixaban 5 mg 09/06/19 21:00 09/08/19 09:00 Eliquis PO 5 mg BID MANA Administration Cyanocobalamin 1,000 mcg 09/07/19 09:00 09/09/19 08:40 Vitamin B-12 PO 1,000 mcg DAILY MANA Administration Digoxin 0.125 mg 09/07/19 09:00 09/09/19 08:40 Lanoxin PO 0.125 mg DAILY MANA Administration Diltiazem HCl 180 mg 09/06/19 21:00 09/09/19 08:40 Cardizem Cd PO 180 mg BID MANA Administration Famotidine 20 mg 09/06/19 21:00 09/09/19 08:40 Pepcid PO 20 mg BID MANA Administration Flecainide Acetate 50 mg 09/06/19 21:00 09/09/19 08:40 Tambocor PO 50 mg Q12HR MANA Administration Folic Acid 1 mg 09/07/19 09:00 09/09/19 08:41 Folvite PO 1 mg BID MANA Administration Furosemide 40 mg 09/07/19 09:00 09/09/19 08:41 Lasix PO 40 mg DAILY MANA Administration Ceftriaxone Sodium 1 gm/ 100 mls @ 200 mls/hr 09/06/19 15:00 09/09/19 15:23 Sodium Chloride IVPB 100 mls 1500 MANA Administration Melatonin 3 mg 09/07/19 18:41 09/08/19 20:24 Melatonin PO 3 mg HS PRN Administration Insomnia Metoprolol Tartrate 25 mg 09/06/19 21:00 09/09/19 08:41 Lopressor PO 25 mg BID MANA Administration Multivitamins 1 tab 09/07/19 09:00 09/09/19 08:41 Theragran PO 1 tab DAILY MANA Administration Potassium Chloride 20 meq 09/07/19 09:00 09/09/19 08:41 K-Dur PO 20 meq DAILY MANA Administration - Exam General Appearance: NAD Neck: supple, no JVD Heart: no gallops, irregular Respiratory: no wheezes, no rales Gastrointestinal: non-tender, non-distended Neurological: no new deficit Hosp A/P - Plan DVT proph w/SCDs 1. Generalized weakness, multifactorial. 2. Suspected urinary tract infection. 3. Chronic atrial fibrillation. 4. Chronic diastolic heart failure. 5. Chronically elevated troponin. 6. Abnormal LFTs/choledocolithiases. 7. Coronary artery disease. 8. History of aortic valve replacement. 9. Obstructive sleep apnea. 10. Chronic kidney disease, stage 3. 11. Penicillin and sulfa allergy. 12. Physical deconditioning. 13. Folic acid def. PLAN: Await MRCP GI input appreciated Cont Cardizem/Metoprolol Anticoag on hold for possible ERCP Cont Folic acid supp Cont other meds Await placement
[2019-09-09] MEDS: Melatonin 3 MG TAB PO PRN (20:51)
[2019-09-10 04:34] LABS: #Basophils 0.1 thou/uL (0.0-0.2); #Eosinphils 0.5 thou/uL (0.0-0.7); #Lymphocytes 2.7 thou/uL (1.20-3.40); #Monocytes 0.8 thou/uL (0.11-0.59); %Basophils 1.1 % (0.0-1.0); %Eosinophils 5.1 % (0.0-10.0); %Monocytes 8.4 % (0.0-10.0); %Neutrophils 55.4 % (42.0-75.0); Hemoglobin 16.3 g/dL (12.0-16.0); Mean Corpuscular HGB CONC 30.9 g/dL (32.0-36.0); Mean Corpuscular Hemoglobin 28.9 pg (27.0-31.0); Mean Corpuscular Volume 93.5 fL (78.0-98.0); Mean Platelet Volume 7.7 fL (7.4-10.4); Platelet Count 420 thou/uL (130-400); RBC Distribution Width 13.8 % (11.5-14.5); Red Blood Cell (RBC) Count 5.63 mill/uL (4.20-5.40)
[2019-09-10 05:01] LABS: ALT (SGPT) 31 U/L (8-55); AST (SGOT) 22 U/L (5-34); Albumin 3.7 g/dL (3.4-4.8); Alkaline Phosphatase 246 U/L (40-110); Anion Gap 16 mmol/L (10-20); BUN (Urea Nitrogen) 26 mg/dL (9.8-20.1); Calc. Creatinine Clearance 62 mL/min (70-130); Calcium 9.4 mg/dL (7.8-10.44); Carbon Dioxide 28 mmol/L (23-31); Chloride 102 mmol/L (98-107); Estimated GFR-MDRD 53; Globulin 3.8 g/dL (2.4-3.5); Glucose 118 mg/dL (83-110); Lipase 74 U/L (8-78); Potassium 3.7 mmol/L (3.5-5.1); Protein, Total 7.5 g/dL (6.0-8.3); Sodium 142 mmol/L (136-145)
[2019-09-10] MEDS: Furosemide 40 MG TAB PO SCH (09:57)
[2019-09-10] MEDS: Flecainide 50 MG TAB PO SCH ×2 (09:58→20:38)
[2019-09-10] MEDS: Digoxin 0.125 MG TAB PO SCH (09:58)
[2019-09-10] MEDS: Metoprolol Tartrate 25 MG TAB PO SCH ×2 (09:58→20:38)
[2019-09-10] MEDS: Famotidine 20 MG TAB PO SCH ×2 (09:58→20:38)
[2019-09-10] MEDS: Folic Acid 1 MG TAB PO SCH ×2 (09:58→20:38)
[2019-09-10] MEDS: Cyanocobalamin (Vitamin B-12) 1,000 MCG TAB PO SCH (09:58)
[2019-09-10] MEDS: Multivit, Therapeutic 1 TAB PO SCH (09:58)
[2019-09-10] MEDS: Potassium Chloride 20 MEQ TAB PO SCH (09:59)
--- NOTE | 2019-09-10 10:44 | MRI ---
MRI ABDOMEN WITHOUT CONTRAST: Date: 09/10/2019 INDICATION: History of choledocholithiasis. COMPARISON: Right upper quadrant ultrasound dated 08/11/2019. FINDINGS: There are multiple small stones within the gallbladder neck. One measures 1.2 cm and an additional me asures 8.0 mm. There is a 1.3 x 0.8 cm stone within the proximal common bile duct. There is an additi onal suspected 1.2 cm stone near the level of the ampulla. There is prominent common bile duct dilata tion measuring up to 2.0 cm. There is moderate intrahepatic biliary ductal dilatation. There is chronic appearing left renal UPJ obstruction. There are small cysts within the left and righ t kidney. There is mild dilatation of the main pancreatic duct measuring up to 4.0 mm at the level of the pancr eatic head. There is a small 8.0 mm cystic abnormality adjacent to the main pancreatic duct and the p ancreatic tail. The spleen and adrenal glands appear within normal limits. No focal hepatic lesion is evident. There is levoscoliosis of the lumbar spine. No free fluid is evident. IMPRESSION: 1. Cholelithiasis with choledocholithiasis and prominent extrahepatic and moderate intrahepatic bili manny ductal dilatation. 2. Mild dilatation of the main pancreatic duct without overt evidence to suggest pancreatitis. 3. Small 8.0 mm periductal cystic abnormality involving the pancreatic tail which may reflect a smal l serous cyst; however, entity such as IPMN cannot be entirely excluded. Follow-up examination of the abdomen with and without contrast in 6 months is recommended to document stability. 4. 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 POS: BH
--- NOTE | 2019-09-10 12:10 | PDOC.HOSPP ---
- Subjective Encounter Date: 09/10/19 Encounter Time: 10:30 Subjective: Patient seen and examined for Gen weakness with abn LFTs. No new complaints. No overnight events - Objective Vital Signs & Weight: Vital Signs (12 hours) Temp Pulse Resp BP BP BP Pulse Ox 09/10/19 11:25 97.1 F L 70 16 125/69 94 L 09/10/19 07:19 97.2 F L 77 17 123/77 96 09/10/19 06:59 94 L 09/10/19 05:58 140/75 130/71 150/74 H 09/10/19 03:54 98.0 F 76 16 121/76 3 L Weight Weight 192 lb 14.4 oz I&O: 09/09/19 09/10/19 09/11/19 06:59 06:59 06:59 Intake Total 1575 600 Output Total 950 950 Balance 625 -350 Result Diagrams: 09/10/19 04:02 09/10/19 04:02 EKG Reviewed by me: Yes (Tele Afib) Hospitalist ROS - Review of Systems Cardiovascular: denies: chest pain, palpitations, orthopnea, paroxysmal noc. dyspnea, edema, light headedness, other Gastrointestinal: denies: nausea, vomiting, abdominal pain, diarrhea, constipation, melena, hematochezia, other - Medication Medications: Active Medications Generic Name Dose Route Start Last Admin Trade Name Freq PRN Reason Stop Dose Admin Apixaban 5 mg 09/06/19 21:00 09/08/19 09:00 Eliquis PO 5 mg BID MANA Administration Cyanocobalamin 1,000 mcg 09/07/19 09:00 09/10/19 09:58 Vitamin B-12 PO 1,000 mcg DAILY MANA Administration Digoxin 0.125 mg 09/07/19 09:00 09/10/19 09:58 Lanoxin PO 0.125 mg DAILY MANA Administration Diltiazem HCl 180 mg 09/06/19 21:00 09/10/19 09:57 Cardizem Cd PO 180 mg BID MANA Administration Famotidine 20 mg 09/06/19 21:00 09/10/19 09:58 Pepcid PO 20 mg BID MANA Administration Flecainide Acetate 50 mg 09/06/19 21:00 09/10/19 09:58 Tambocor PO 50 mg Q12HR MANA Administration Folic Acid 1 mg 09/07/19 09:00 09/10/19 09:58 Folvite PO 1 mg BID MANA Administration Furosemide 40 mg 09/07/19 09:00 09/10/19 09:57 Lasix PO 40 mg DAILY MANA Administration Ceftriaxone Sodium 1 gm/ 100 mls @ 200 mls/hr 09/06/19 15:00 09/09/19 15:23 Sodium Chloride IVPB 100 mls 1500 MANA Administration Metoprolol Tartrate 25 mg 09/06/19 21:00 09/10/19 09:58 Lopressor PO 25 mg BID MANA Administration Multivitamins 1 tab 09/07/19 09:00 09/10/19 09:58 Theragran PO 1 tab DAILY MANA Administration Potassium Chloride 20 meq 09/07/19 09:00 09/10/19 09:59 K-Dur PO 20 meq DAILY MANA Administration - Exam General Appearance: NAD Neck: supple, no JVD Heart: no gallops, irregular Respiratory: no wheezes, no rales Gastrointestinal: non-tender, non-distended, normal bowel sounds Extremities: no cyanosis Neurological: no new deficit Hosp A/P - Plan DVT proph w/SCDs 1. Generalized weakness, multifactorial. 2. Suspected urinary tract infection. 3. Chronic atrial fibrillation. 4. Chronic diastolic heart failure. 5. Chronically elevated troponin. 6. Abnormal LFTs/choledocolithiases. 7. Coronary artery disease. 8. History of aortic valve replacement. 9. Obstructive sleep apnea. 10. Chronic kidney disease, stage 3. 11. Penicillin and sulfa allergy. 12. Physical deconditioning. 13. Folic acid def - on supp PLAN: MRCP - choledocolithiases/cholelithiases GI following Cont Cardizem/Metoprolol Eliquis on hold for possible ERCP Cont other meds Await placement CMP in AM
[2019-09-10] MEDS ORDERED: Ondansetron PF 4 MG/2 ML Vial ONE (13:08)
[2019-09-10] MEDS ORDERED: Dexamethasone 20 MG/5 ML VIAL ONE (13:08)
[2019-09-10] MEDS ORDERED: Lidocaine 1% PF 5 ML VIAL ONE (13:08)
[2019-09-10] MEDS ORDERED: EPHEDRINE 25 MG/5 ML SYRINGE ONE (13:08)
[2019-09-10] MEDS ORDERED: Rocuronium Bromide 10 MG/ML (10ML VIAL) ONE (13:08)
[2019-09-10] MEDS ORDERED: PHENYLEPHRINE-NS 100 MCG/ML 10 ML SYRINGE ONE (13:08)
[2019-09-10] MEDS ORDERED: Glycopyrrolate 0.2 MG/ML 5 ML SYRINGE ONE (13:08)
[2019-09-10] MEDS ORDERED: PROPOFOL 200 MG/20 ML VIAL ONE (13:08)
[2019-09-10] MEDS ORDERED: Fentanyl 100 MCG/2 ML VIAL ONE (13:32)
[2019-09-10] MEDS ORDERED: Iopamidol 50 ML FS ONE ×2 (14:11→14:58)
[2019-09-10] MEDS ORDERED: Indomethacin 50 MG SUPP ONE (14:11)
[2019-09-10] MEDS ORDERED: cefTRIAXone\\ROCEPHIN 1 GM VIAL ONE (14:14)
[2019-09-10] MEDS ORDERED: Sodium Chloride 0.9% 100 ML ONE (14:15)
--- NOTE | 2019-09-10 14:40 | PRG ---
DATE OF SERVICE: 09/10/2019 SUBJECTIVE: Ms. Stafford has no acute complaints. She has no acute shortness of breath, but does get short of breath after walking 2 or 3 blocks she says. She has no nausea or vomiting. She has occasional right upper quadrant to upper abdominal pain, but this is not of persistent pain currently. MRCP was performed to evaluate cholestasis. Ultrasound has shown a suspected stone in the bile duct. MRCP confirms choledocholithiasis with a couple of stones measuring up to 1.3 cm and the common bile duct dilation measuring up to 2 cm. OBJECTIVE: VITAL SIGNS: Temperature 97.1, pulse 70, and blood pressure 125/69. GENERAL: She is in no acute distress. Alert and oriented x3. HEENT: Eyes have no scleral icterus. Oropharynx is clear without lesions. No cervical or supraclavicular lymphadenopathy. LUNGS: Clear to auscultation bilaterally. HEART: Regular rate and rhythm without murmur. ABDOMEN: Soft, nontender, and nondistended. Bowel sounds are present. EXTREMITIES: No lower extremity edema. LABORATORY DATA: Bilirubin is improved from 1.5 to 1.0. Her alkaline phosphatase is elevated to 246. AST and ALT are normal. Albumin 3.7. White blood cell count 9.0, hemoglobin 16.3, and platelets 420. IMPRESSION: Choledocholithiasis and cholelithiasis with elevated alkaline phosphatase and bilirubin. Her bilirubin is improved. RECOMMENDATIONS: 1. We will plan ERCP with stone extraction. 2. Cholecystectomy should follow in the future. 3. Her last dose of Eliquis was over 48 hours ago now. 4. She has been on ceftriaxone. 5. I explained the risks and benefits of ERCP in detail with the patient. Job ID: [id number]
[2019-09-10] MEDS ORDERED: Promethazine HCl 25 MG/ML VIAL SLOW IVP PRN (16:00)
[2019-09-10] MEDS ORDERED: Ondansetron HCl/PF 4 MG/2 ML Vial IVP PRN (16:00)
[2019-09-10] MEDS ORDERED: Promethazine HCl 25 MG/ML VIAL IM PRN (16:00)
[2019-09-10] MEDS ORDERED: Promethazine HCl 25 MG/ML VIAL ONE (16:45)
[2019-09-10] MEDS: cefTRIAXone\\ROCEPHIN 1 GM in Sodium Chloride 0.9% 100 ML IVPB SCH (17:04)
--- NOTE | 2019-09-10 17:30 | RAD ---
EXAM: ERCP: 09/10/19 HISTORY: Stone extraction. 8 portable fluoroscopic spot images are presented for interpretation. There is a very markedly dilate d common bile duct and common hepatic duct with some central intrahepatic ductal dilatation. There is a filling defect in the distal common duct which certainly could represent a calculus. The final shirley ges demonstrate placement of a stent. IMPRESSION: Marked dilatation of the common hepatic and common bile duct and visualized intrahepatic ducts with a filling defect in the distal common duct. Placement of an internal biliary stent. POS: RRE
--- NOTE | 2019-09-10 22:49 | OP ---
DATE OF PROCEDURE: 09/10/2019 PROCEDURE PERFORMED: Endoscopic retrograde cholangiopancreatography with sphincterotomy and balloon stone extraction and plastic biliary stent. PREOPERATIVE DIAGNOSES: Cholestasis and choledocholithiasis. DESCRIPTION OF PROCEDURE: Informed consent was obtained from the patient. She was sedated with general anesthesia and placed in the prone position. The duodenoscope was advanced to the second portion of the duodenum, where the ampulla was identified and had a periampullary villous mass around it. The elevator on the duodenoscope was nonfunctional, so exchange was made for a second duodenoscope. The common bile duct was easily cannulated on first attempt with a guidewire followed by the sphincterotome. Cholangiogram was then performed, which showed the common bile duct to be markedly dilated greater than 2 cm. The extrahepatic and intrahepatic ducts did fill and appeared nondilated but were incompletely visualized as the common bile duct accepted so much contrast, the more proximal ducts filled poorly. As the sphincterotome was pulled out of the bile duct, there was tumor or polyp material on the sphincterotome wire indicating that the mass extends up into the distal common bile duct, indicating that endoscopic ampullectomy would not be a good option. I performed a complete sphincterotomy. There was good flow of bile with that. I fully inflated an 18 mm balloon within the more proximal common bile duct. However, the bile duct diameter was wider than the balloon. As the balloon was advanced in the more distal duct, it did narrow and the balloon had to be deflated to allow to pass through the ampulla. I removed a large 1.5 cm brown stone from the distal common bile duct with the balloon. No other obvious filling defect was identified; however, even this stone did not show up well on the cholangiogram. Repeat sweep of the balloon through the bile duct failed to identify any other stones within the duct, however, suspect there still could be a stone further up in the duct. The 15 mm balloon does pass through the ampulla and sphincterotomy; however, the distal duct is narrowed secondary to the tumor. This largely everts with pulling the balloon through the site and the mass in the distal bile duct is better visualized as the balloon was pulled through. I placed an 11.5-Taiwanese 5 cm stent across the mass and distal common bile duct narrowing. There was good flow of bile and contrast through the stent. I performed multiple biopsies from the distal common bile duct and ampulla with a biopsy forceps. The air and fluid were suctioned from the stomach and the procedure was completed. IMPRESSION: 1. Periampullary villous-appearing mass. This appears to extend up into the distal common bile duct as it is better seen when the site is everted somewhat with pulling the balloon through the area. Multiple biopsies were obtained. 2. Cholangiogram showing marked dilation of the common bile duct to over 2 cm. The hepatic ducts appear unremarkable, however, were incompletely filled as the common bile duct accepted so much contrast. 3. Large sphincterotomy performed. 4. 1.5 cm soft brown stone was extracted with a 15-18 mm balloon. 5. The distal common bile duct narrowing secondary to tumor was better visualized when this area was everted with a balloon. 6. Plastic 11.5-Taiwanese 5 cm stent was placed with good bile flow. RECOMMENDATIONS: 1. Await histopathology. 2. The plastic stent is temporary and will need to be removed or exchanged within 2-3 months. 3. Referrals for management of the ampullary/CBD mass will be done pending pathology results. Job ID: [id number]
[2019-09-11 04:15] LABS: #Lymphocytes 1.2 thou/uL (1.20-3.40); #Monocytes 0.4 thou/uL (0.11-0.59); #Neutrophils 7.8 thou/uL (1.40-6.50); %Basophils 0.1 % (0.0-1.0); %Eosinophils 0.2 % (0.0-10.0); %Lymphocytes 12.5 % (21.0-51.0); %Monocytes 4.5 % (0.0-10.0); %Neutrophils 82.7 % (42.0-75.0); Hemoglobin 15.7 g/dL (12.0-16.0); Mean Corpuscular HGB CONC 32.2 g/dL (32.0-36.0); Mean Corpuscular Hemoglobin 30.1 pg (27.0-31.0); Mean Corpuscular Volume 93.5 fL (78.0-98.0); Platelet Count 419 thou/uL (130-400); RBC Distribution Width 13.5 % (11.5-14.5); White Blood Cell (WBC) Count 9.4 thou/uL (4.8-10.8)
[2019-09-11 04:49] LABS: ALT (SGPT) 32 U/L (8-55); AST (SGOT) 26 U/L (5-34); Albumin 3.6 g/dL (3.4-4.8); Alkaline Phosphatase 228 U/L (40-110); Anion Gap 15 mmol/L (10-20); BUN (Urea Nitrogen) 29 mg/dL (9.8-20.1); Calc. Creatinine Clearance 53 mL/min (70-130); Calcium 9.3 mg/dL (7.8-10.44); Carbon Dioxide 24 mmol/L (23-31); Chloride 104 mmol/L (98-107); Estimated GFR-MDRD 44; Globulin 3.6 g/dL (2.4-3.5); Glucose 127 mg/dL (83-110); Lipase 35 U/L (8-78); Protein, Total 7.2 g/dL (6.0-8.3); Sodium 138 mmol/L (136-145)
[2019-09-11] MEDS: Digoxin 0.125 MG TAB PO SCH (08:43)
[2019-09-11] MEDS: Furosemide 40 MG TAB PO SCH (08:44)
[2019-09-11] MEDS: Metoprolol Tartrate 25 MG TAB PO SCH ×2 (08:44→21:10)
[2019-09-11] MEDS: Potassium Chloride 20 MEQ TAB PO SCH (08:44)
[2019-09-11] MEDS: Folic Acid 1 MG TAB PO SCH ×2 (08:44→21:10)
[2019-09-11] MEDS: Multivit, Therapeutic 1 TAB PO SCH (08:44)
[2019-09-11] MEDS: Famotidine 20 MG TAB PO SCH ×2 (08:44→21:10)
[2019-09-11] MEDS: Flecainide 50 MG TAB PO SCH ×2 (08:44→21:10)
[2019-09-11] MEDS: Cyanocobalamin (Vitamin B-12) 1,000 MCG TAB PO SCH (08:44)
--- NOTE | 2019-09-11 11:01 | PDOC.HOSPP ---
- Subjective Encounter Date: 09/11/19 Encounter Time: 08:30 Subjective: Patient seen and examined. No new complaints. No overnight events - Objective Vital Signs & Weight: Vital Signs (12 hours) Temp Pulse Resp BP Pulse Ox 09/11/19 07:41 98.3 F 67 20 114/61 94 L 09/11/19 04:00 96.8 F L 73 18 125/55 L 97 Weight Weight 190 lb 8 oz I&O: 09/10/19 09/11/19 09/12/19 06:59 06:59 06:59 Intake Total 600 500 Output Total 950 Balance -350 500 Result Diagrams: 09/11/19 03:54 09/11/19 03:54 Radiology Reviewed by me: Yes EKG Reviewed by me: Yes Hospitalist ROS - Review of Systems ENT: denies: ear pain, ear discharge, nose pain, nose discharge, nose congestion , mouth pain, mouth swelling, throat pain, throat swelling, other Respiratory: denies: cough, dry, shortness of breath, hemoptysis, SOB with excertion, pleuritic pain, sputum, wheezing, other Cardiovascular: denies: chest pain, palpitations, orthopnea, paroxysmal noc. dyspnea, edema, light headedness, other Gastrointestinal: denies: nausea, vomiting, abdominal pain, diarrhea, constipation, melena, hematochezia, other Genitourinary: denies: dysuria, frequency, incontinence, hematuria, retention, other Musculoskeletal: denies: neck pain, shoulder pain, arm pain, back pain, hand pain, leg pain, foot pain, other - Medication Medications: Active Medications Generic Name Dose Route Start Last Admin Trade Name Cristianoq PRN Reason Stop Dose Admin Cyanocobalamin 1,000 mcg 09/07/19 09:00 09/11/19 08:44 Vitamin B-12 PO 1,000 mcg DAILY MANA Administration Digoxin 0.125 mg 09/07/19 09:00 09/11/19 08:43 Lanoxin PO 0.125 mg DAILY MANA Administration Diltiazem HCl 180 mg 09/06/19 21:00 09/11/19 08:44 Cardizem Cd PO 180 mg BID MANA Administration Famotidine 20 mg 09/06/19 21:00 09/11/19 08:44 Pepcid PO 20 mg BID MANA Administration Flecainide Acetate 50 mg 09/06/19 21:00 09/11/19 08:44 Tambocor PO 50 mg Q12HR MANA Administration Folic Acid 1 mg 09/07/19 09:00 09/11/19 08:44 Folvite PO 1 mg BID MANA Administration Furosemide 40 mg 09/07/19 09:00 09/11/19 08:44 Lasix PO 40 mg DAILY MANA Administration Ceftriaxone Sodium 1 gm/ 100 mls @ 200 mls/hr 09/06/19 15:00 09/10/19 17:04 Sodium Chloride IVPB Not Given 1500 MANA Metoprolol Tartrate 25 mg 09/06/19 21:00 09/11/19 08:44 Lopressor PO 25 mg BID MANA Administration Multivitamins 1 tab 09/07/19 09:00 09/11/19 08:44 Theragran PO 1 tab DAILY MANA Administration Potassium Chloride 20 meq 09/07/19 09:00 09/11/19 08:44 K-Dur PO 20 meq DAILY MANA Administration - Exam General Appearance: NAD, awake alert Eye: PERRL, anicteric sclera ENT: normocephalic atraumatic, no oropharyngeal lesions Neck: supple, symmetric, no JVD, no thyromegaly Heart: RRR, no murmur, no gallops, no rubs Respiratory: CTAB, no wheezes, no rales, no ronchi Gastrointestinal: soft, non-tender, non-distended, normal bowel sounds Extremities: no cyanosis, no clubbing Skin: normal turgor, no lesions Neurological: no focal deficits Musculoskeletal: normal tone, normal strength Psychiatric: normal affect, normal behavior Hosp A/P - Plan old records reviewed/req 1. Generalized weakness, multifactorial. 2. urinary tract infection. 3. Chronic atrial fibrillation. 4. Chronic diastolic heart failure. 5. Chronically elevated troponin. 6. Abnormal LFTs/choledocolithiases/periamularry mass. 7. Coronary artery disease. 8. History of aortic valve replacement. 9. Obstructive sleep apnea.on cpap 10. Chronic kidney disease, stage 3. 11. Penicillin and sulfa allergy. 12. Physical deconditioning. 13. Folic acid def - on supp Plan continue rocephin medication reviewed, supportive care will continue to hold elliquis as pt had large shincterotomy follow up on pathology report expecting discharge soon
--- NOTE | 2019-09-11 11:17 | PRG ---
DATE OF SERVICE: 09/11/2019 SUBJECTIVE: Ms. Stafford is feeling pretty well today. She is not having any abdominal pain or nausea. She tolerated her breakfast. She has been afebrile. OBJECTIVE: VITAL SIGNS: Temperature 98.3, pulse 67, blood pressure 114/61, 94% oxygen saturation on room air. GENERAL: No acute distress. HEART: Regular rate and rhythm. LUNGS: Clear to auscultation bilaterally. ABDOMEN: Bowel sounds present. Soft and nontender to palpation throughout. EXTREMITIES: No peripheral edema. LABORATORY STUDIES: WBC is 9.4, hemoglobin 15.7, platelets 419. Sodium 138, potassium 5.0, BUN 29, creatinine 1.18, glucose 127, calcium 9.3, total bilirubin down to 1.0, alkaline phosphatase only 228, AST 26, ALT 32, lipase only 35, albumin 3.6. ASSESSMENT AND PLAN: 1. Ampullary mass. This was demonstrated on endoscopic retrograde cholangiopancreatography with Dr. Redmond yesterday. It appeared to extend up into the distal common bile duct. We are awaiting biopsies that were obtained during the examination. 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 2. Choledocholithiasis. Dr. Redmond was able to extract a soft stone from the common bile duct and placed a plastic 11.5-Swedish x 5 cm stent into the common bile duct. This morning, there is no evidence of pancreatitis or any biliary obstruction. 3. Referrals for management of the ampullary/common bile duct mass will be done, pending pathology results. The plastic stent will need to be removed or exchanged in 2 to 3 months. The patient will have close followup with Dr. Gibbons in the [facility] in the next 2 to 3 weeks. 4. Please call anytime with questions or concerns. Job ID: [id number]
[2019-09-11] MEDS: cefTRIAXone\\ROCEPHIN 1 GM in Sodium Chloride 0.9% 100 ML IVPB SCH (15:22)
[2019-09-12] MEDS: Benzonatate 100 MG CAP PO PRN ×2 (03:46→21:38)
[2019-09-12] MEDS: Acetaminophen 325 MG TAB PO PRN ×2 (03:46→21:38)
[2019-09-12] MEDS: Famotidine 20 MG TAB PO SCH ×2 (08:06→21:38)
[2019-09-12] MEDS: Digoxin 0.125 MG TAB PO SCH (08:06)
[2019-09-12] MEDS: Potassium Chloride 20 MEQ TAB PO SCH (08:06)
[2019-09-12] MEDS: Flecainide 50 MG TAB PO SCH ×2 (08:06→21:38)
[2019-09-12] MEDS: Folic Acid 1 MG TAB PO SCH ×2 (08:06→21:39)
[2019-09-12] MEDS: Multivit, Therapeutic 1 TAB PO SCH (08:07)
[2019-09-12] MEDS: Furosemide 40 MG TAB PO SCH (08:07)
[2019-09-12] MEDS: Cyanocobalamin (Vitamin B-12) 1,000 MCG TAB PO SCH (08:07)
[2019-09-12] MEDS: Metoprolol Tartrate 25 MG TAB PO SCH ×2 (08:07→21:38)
--- NOTE | 2019-09-12 10:52 | PDOC.HOSPP ---
- Subjective Encounter Date: 09/12/19 Encounter Time: 09:00 Subjective: Patient seen and examined. No new complaints. No overnight events - Objective Vital Signs & Weight: Vital Signs (12 hours) Temp Pulse Resp BP Pulse Ox 09/12/19 08:06 66 09/12/19 08:00 97.7 F 65 15 96/63 91 L 09/12/19 03:32 97.7 F 66 17 101/68 96 09/12/19 00:00 97.5 F L 61 16 104/70 94 L Weight Weight 193 lb 6 oz I&O: 09/11/19 09/12/19 09/13/19 06:59 06:59 06:59 Intake Total 500 1060 240 Output Total 1650 Balance 500 -590 240 Result Diagrams: 09/11/19 03:54 09/11/19 03:54 Hospitalist ROS - Review of Systems Constitutional: reports: weakness, malaise. denies: fever, chills, sweats, other ENT: denies: ear pain, ear discharge, nose pain, nose discharge, nose congestion , mouth pain, mouth swelling, throat pain, throat swelling, other Respiratory: denies: cough, dry, shortness of breath, hemoptysis, SOB with excertion, pleuritic pain, sputum, wheezing, other Cardiovascular: denies: chest pain, palpitations, orthopnea, paroxysmal noc. dyspnea, edema, light headedness, other Gastrointestinal: denies: nausea, vomiting, abdominal pain, diarrhea, constipation, melena, hematochezia, other Genitourinary: denies: dysuria, frequency, incontinence, hematuria, retention, other Musculoskeletal: denies: neck pain, shoulder pain, arm pain, back pain, hand pain, leg pain, foot pain, other Skin: denies: rash, lesions, priyank, bruising, other - Medication Medications: Active Medications Generic Name Dose Route Start Last Admin Trade Name Freq PRN Reason Stop Dose Admin Acetaminophen 650 mg 09/06/19 14:03 09/12/19 03:46 Tylenol PO 650 mg Q4H PRN Administration Headache/Fever/Mild Pain (1-3) Benzonatate 100 mg 09/12/19 03:28 09/12/19 03:46 Tessalon PO 100 mg TIDPRN PRN Administration Cough Cyanocobalamin 1,000 mcg 09/07/19 09:00 09/12/19 08:07 Vitamin B-12 PO 1,000 mcg DAILY MANA Administration Digoxin 0.125 mg 09/07/19 09:00 09/12/19 08:06 Lanoxin PO 0.125 mg DAILY MANA Administration Diltiazem HCl 180 mg 09/06/19 21:00 09/12/19 08:07 Cardizem Cd PO 180 mg BID MANA Administration Famotidine 20 mg 09/06/19 21:00 09/12/19 08:06 Pepcid PO 20 mg BID MANA Administration Flecainide Acetate 50 mg 09/06/19 21:00 09/12/19 08:06 Tambocor PO 50 mg Q12HR MANA Administration Folic Acid 1 mg 09/07/19 09:00 09/12/19 08:06 Folvite PO 1 mg BID MANA Administration Furosemide 40 mg 09/07/19 09:00 09/12/19 08:07 Lasix PO 40 mg DAILY MANA Administration Ceftriaxone Sodium 1 gm/ 100 mls @ 200 mls/hr 09/06/19 15:00 09/11/19 15:22 Sodium Chloride IVPB 100 mls 1500 MANA Administration Metoprolol Tartrate 25 mg 09/06/19 21:00 09/12/19 08:07 Lopressor PO 25 mg BID MANA Administration Multivitamins 1 tab 09/07/19 09:00 09/12/19 08:07 Theragran PO 1 tab DAILY MANA Administration Potassium Chloride 20 meq 09/07/19 09:00 09/12/19 08:06 K-Dur PO 20 meq DAILY MANA Administration Sodium Chloride 10 ml 09/06/19 14:03 09/12/19 08:07 Flush - Normal Saline IVF 10 ml PRN PRN Administration Saline Flush - Exam General Appearance: NAD, awake alert Eye: PERRL, anicteric sclera ENT: normocephalic atraumatic, no oropharyngeal lesions Neck: supple, symmetric, no JVD, no thyromegaly Heart: no murmur, no gallops, no rubs, irregular Respiratory: CTAB, no wheezes, no rales, no ronchi Gastrointestinal: soft, non-tender, non-distended, normal bowel sounds Gastrointestinal - other findings: obesity+ Extremities: no cyanosis, no clubbing Skin: normal turgor, no lesions Neurological: no focal deficits, no new deficit Musculoskeletal: normal tone, normal strength Psychiatric: normal affect, normal behavior Hosp A/P - Plan old records reviewed/req Assessment: 1. Generalized weakness, multifactorial. 2. urinary tract infection. 3. Chronic atrial fibrillation. 4. Chronic diastolic heart failure. 5. Chronically elevated troponin. 6. Abnormal LFTs/choledocolithiases/periamularry mass. 7. Coronary artery disease. 8. History of aortic valve replacement. 9. Obstructive sleep apnea.on cpap 10. Chronic kidney disease, stage 3. 11. Penicillin and sulfa allergy. 12. Physical deconditioning. 13. Folic acid def - on supp Plan Today tried to do peer to peer, but now pt has been denied for inpt rehab, pt will need skilled level of care will consult disease case manager rn for SNU placement medication reviewed, symptomatic care, supportive care if SNU arranged, will consider DC tomorrow Elliquis will be restarted in next 24-48 hours.
[2019-09-12] MEDS: cefTRIAXone\\ROCEPHIN 1 GM in Sodium Chloride 0.9% 100 ML IVPB SCH (14:55)
--- NOTE | 2019-09-12 16:50 | PRG ---
DATE OF SERVICE: 09/12/2019 SUBJECTIVE: Ms. Stafford is in bed. She states she is feeling somewhat run down, therefore, she is eating some. She is not a candidate for rehab, so they are trying to get her into a shelter unit. MEDICATIONS: 1. Tylenol. 2. Tessalon. 3. Tums. 4. Rocephin. 5. B12. 6. Lanoxin. 7. Cardizem. 8. Flecainide. 9. Folvite. 10. Lasix 40 mg daily. 11. Lopressor. 12. Theragran. 13. Potassium. PHYSICAL EXAMINATION: GENERAL: She is resting comfortably in bed. She has a little bit of velázquez facies and buffalo hump. VITAL SIGNS: Temperature 97.7, pulse 66, respirations 15, O2 sat 91% to 96% on room air, she is now on nasal cannula, blood pressure 96/63. LUNGS: Decreased breath sounds at bases. HEART: Regular rate and rhythm. ABDOMEN: Soft and nontender. LABORATORY DATA: No repeat of liver function test today. BUN and creatinine were up to 29 and 1.8 yesterday from 26 and 1.10 the day before. Repeat CBC. 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 No high-grade dysplasia or invasive malignancy identified. ASSESSMENT: 1. Choledocholithiasis, resolved. 2. Ampullary mass. Biopsies were benign. This does not rule out the possibility of deeper pathology. She does have a stent in at this time with no signs of biliary obstruction. As far as what to do with this, I think for now what we can do will be determined on what her baseline medical status is at present. She is not a candidate for a Whipple procedure in any way whatsoever. Some attempted endoscopic resection may certainly be considered when she recovers, this again would be a speciality procedure performed in [place], may be also just reasonable to observe her, even consider an elective Wallstent placement for palliation. 3. History of coronary artery disease. 4. History of congestive heart failure. 5. History of atrial fibrillation. 6. History of chronic anticoagulation. 7. Sleep apnea. 8. Chronic kidney disease, stage 3. 9. Prior history of adenocarcinoma of the colon, status post resection and previous aortic valve replacement. RECOMMENDATIONS: We would recheck labs tomorrow to check on hydration status. She is on diuretics. If the anticoagulation is to be restarted, that can be done tomorrow as well. When she is discharged, she will need a followup in the office with Dr. Gibbons in 2 to 3 weeks. Job ID: [id number]
[2019-09-13] MEDS: Flecainide 50 MG TAB PO SCH ×2 (07:52→20:05)
[2019-09-13] MEDS: Multivit, Therapeutic 1 TAB PO SCH (07:52)
[2019-09-13] MEDS: Digoxin 0.125 MG TAB PO SCH (07:52)
[2019-09-13] MEDS: Cyanocobalamin (Vitamin B-12) 1,000 MCG TAB PO SCH (07:53)
[2019-09-13] MEDS: Metoprolol Tartrate 25 MG TAB PO SCH ×2 (07:53→20:05)
[2019-09-13] MEDS: Potassium Chloride 20 MEQ TAB PO SCH (07:53)
[2019-09-13] MEDS: Furosemide 40 MG TAB PO SCH (07:53)
[2019-09-13] MEDS: Famotidine 20 MG TAB PO SCH (07:53)
[2019-09-13] MEDS: Folic Acid 1 MG TAB PO SCH ×2 (07:53→20:05)
[2019-09-13] MEDS ORDERED: Cepastat Lozenges 1 LOZ PO PRN (10:23)
[2019-09-13] MEDS ORDERED: Bisacodyl 10 MG SUPP PR PRN (10:23)
[2019-09-13] MEDS ORDERED: cloNIDine 0.1 MG TAB PO PRN (10:23)
[2019-09-13] MEDS ORDERED: Loperamide HCl 2 MG CAP PO PRN (10:23)
[2019-09-13] MEDS ORDERED: Sodium Chloride 0.65% Nasal 44 ML BOT EA NARE PRN (10:23)
[2019-09-13] MEDS ORDERED: Senokot S 8.6-50 MG TAB PO PRN (10:23)
[2019-09-13] MEDS ORDERED: Loratadine 10 MG TAB PO PRN (10:23)
[2019-09-13] MEDS ORDERED: HYDROcodone/Acetaminophen 5/325 mg Tablet PO PRN (10:23)
--- NOTE | 2019-09-13 10:23 | PDOC.HOSPP ---
- Subjective Encounter Date: 09/13/19 Encounter Time: 08:30 Subjective: Patient seen and examined. No new complaints. No overnight events - Objective Vital Signs & Weight: Vital Signs (12 hours) Temp Pulse Resp BP BP Pulse Ox 09/13/19 07:50 71 16 94 L 09/13/19 07:29 98.6 F 66 15 114/76 96 09/13/19 04:00 97.6 F 56 L 18 114/75 96 Weight Weight 180 lb I&O: 09/12/19 09/13/19 09/14/19 06:59 06:59 06:59 Intake Total 1060 600 Output Total 1650 800 Balance -590 -200 Result Diagrams: 09/11/19 03:54 09/11/19 03:54 Hospitalist ROS - Review of Systems Constitutional: reports: weakness. denies: fever, chills, sweats, malaise, other ENT: denies: ear pain, ear discharge, nose pain, nose discharge, nose congestion , mouth pain, mouth swelling, throat pain, throat swelling, other Respiratory: denies: cough, dry, shortness of breath, hemoptysis, SOB with excertion, pleuritic pain, sputum, wheezing, other Cardiovascular: denies: chest pain, palpitations, orthopnea, paroxysmal noc. dyspnea, edema, light headedness, other Gastrointestinal: denies: nausea, vomiting, abdominal pain, diarrhea, constipation, melena, hematochezia, other Genitourinary: denies: dysuria, frequency, incontinence, hematuria, retention, other Musculoskeletal: denies: neck pain, shoulder pain, arm pain, back pain, hand pain, leg pain, foot pain, other Skin: denies: rash, lesions, priyank, bruising, other - Medication Medications: Active Medications Generic Name Dose Route Start Last Admin Trade Name Freq PRN Reason Stop Dose Admin Acetaminophen 650 mg 09/06/19 14:03 09/12/19 21:38 Tylenol PO 650 mg Q4H PRN Administration Headache/Fever/Mild Pain (1-3) Benzonatate 100 mg 09/12/19 03:28 09/12/19 21:38 Tessalon PO 100 mg TIDPRN PRN Administration Cough Cyanocobalamin 1,000 mcg 09/07/19 09:00 09/13/19 07:53 Vitamin B-12 PO 1,000 mcg DAILY MANA Administration Digoxin 0.125 mg 09/07/19 09:00 09/13/19 07:52 Lanoxin PO 0.125 mg DAILY MANA Administration Diltiazem HCl 180 mg 09/06/19 21:00 09/13/19 07:52 Cardizem Cd PO 180 mg BID MANA Administration Famotidine 20 mg 09/06/19 21:00 09/13/19 07:53 Pepcid PO 20 mg BID MANA Administration Flecainide Acetate 50 mg 09/06/19 21:00 09/13/19 07:52 Tambocor PO 50 mg Q12HR MANA Administration Folic Acid 1 mg 09/07/19 09:00 09/13/19 07:53 Folvite PO 1 mg BID MANA Administration Furosemide 40 mg 09/07/19 09:00 09/13/19 07:53 Lasix PO 40 mg DAILY MANA Administration Melatonin 3 mg 09/07/19 18:52 09/13/19 01:34 Melatonin PO 3 mg HS PRN Administration Insomnia Metoprolol Tartrate 25 mg 09/06/19 21:00 09/13/19 07:53 Lopressor PO 25 mg BID MANA Administration Multivitamins 1 tab 09/07/19 09:00 09/13/19 07:52 Theragran PO 1 tab DAILY MANA Administration Potassium Chloride 20 meq 09/07/19 09:00 09/13/19 07:53 K-Dur PO 20 meq DAILY MANA Administration Sodium Chloride 10 ml 09/06/19 14:03 09/13/19 07:53 Flush - Normal Saline IVF 10 ml PRN PRN Administration Saline Flush - Exam General Appearance: NAD, awake alert Eye: PERRL, anicteric sclera ENT: normocephalic atraumatic, no oropharyngeal lesions Neck: supple, symmetric, no JVD Heart: RRR, no murmur, no gallops, no rubs Respiratory: CTAB, no wheezes, no rales, no ronchi Gastrointestinal: soft, non-tender, non-distended, normal bowel sounds Extremities: no cyanosis, no clubbing, no edema Skin: normal turgor, no lesions Neurological: no focal deficits Musculoskeletal: normal tone, normal strength Psychiatric: normal affect, normal behavior Hosp A/P - Plan old records reviewed/req, PT/OT, social media job titles Assessment: 1. Generalized weakness, multifactorial. 2. urinary tract infection. 3. Chronic atrial fibrillation. 4. Chronic diastolic heart failure. 5. Chronically elevated troponin. 6. Abnormal LFTs/choledocolithiases/periamularry mass. 7. Coronary artery disease. 8. History of aortic valve replacement. 9. Obstructive sleep apnea.on cpap 10. Chronic kidney disease, stage 3. 11. Penicillin and sulfa allergy. 12. Physical deconditioning. 13. Folic acid def - on supp Plan case briefer for SNU placement medication reviewed, symptomatic care, supportive care if SNU arranged, will consider DC today today will start jose a barrios as she has finished treatment
[2019-09-13] MEDS ORDERED: Metoclopramide HCl 10 MG TAB PO PRN (10:24)
--- NOTE | 2019-09-13 14:42 | PRG ---
DATE OF SERVICE: 09/13/2019 SUBJECTIVE: Ms. Stafford is feeling weak. She is up with physical therapy today. She has been eating. OBJECTIVE: VITAL SIGNS: Temperature is 98, pulse 66, blood pressure 114/67. ABDOMEN: Protuberant, but nontender. LABORATORY DATA: None. ASSESSMENT: 1. Status post bile duct stent with ampullary mass, benign adenoma. She will need to follow up with Dr. Gibbons in the office in 3 weeks with regard to this. 2. Poor functional status, generalized weakness, urinary tract infection, chronic atrial fibrillation, diastolic heart failure. All of those being managed by Internal Medicine, we will defer that management to them. We will be more than happy to re-evaluate her if needed, but we will sign off from a GI standpoint at this time. Job ID: [id number]
[2019-09-13] MEDS: Apixaban 5 MG TAB PO SCH (20:05)
[2019-09-14] MEDS: Digoxin 0.125 MG TAB PO SCH (08:10)
[2019-09-14] MEDS: Potassium Chloride 20 MEQ TAB PO SCH (08:10)
[2019-09-14] MEDS: Flecainide 50 MG TAB PO SCH ×2 (08:10→19:56)
[2019-09-14] MEDS: Famotidine 20 MG TAB PO SCH (08:10)
[2019-09-14] MEDS: Cyanocobalamin (Vitamin B-12) 1,000 MCG TAB PO SCH (08:10)
[2019-09-14] MEDS: Apixaban 5 MG TAB PO SCH ×2 (08:10→19:57)
[2019-09-14] MEDS: Furosemide 40 MG TAB PO SCH (08:11)
[2019-09-14] MEDS: Multivit, Therapeutic 1 TAB PO SCH (08:11)
[2019-09-14] MEDS: Metoprolol Tartrate 25 MG TAB PO SCH ×2 (08:11→19:57)
[2019-09-14] MEDS: Folic Acid 1 MG TAB PO SCH ×2 (08:11→19:57)
[2019-09-14] MEDS: Acetaminophen 325 MG TAB PO PRN ×2 (08:15→19:56)
--- NOTE | 2019-09-14 15:03 | EKG ---
Test Reason : Blood Pressure : / mmHG Vent. Rate : 113 BPM Atrial Rate : 095 BPM P-R Int : 000 ms QRS Dur : 128 ms QT Int : 384 ms P-R-T Axes : 000 -13 -33 degrees QTc Int : 526 ms Atrial fibrillation with rapid ventricular response Right bundle branch block Minimal voltage criteria for LVH, may be normal variant Abnormal ECG Confirmed by SHENG NG, KALIE ([id number]), content editor MAMADOU LORENZO ([id number]) on 09/14/2019 3:02:41 PM Referred By: Confirmed By:KALIE PATRICIO MD
--- NOTE | 2019-09-14 16:57 | PDOC.HOSPP ---
- Subjective Encounter Date: 09/14/19 Encounter Time: 16:50 Subjective: f/u for multifactorial weakness - Objective Vital Signs & Weight: Vital Signs (12 hours) Temp Pulse Pulse Resp BP BP Pulse Ox 09/14/19 10:27 65 106/63 09/14/19 08:10 75 09/14/19 08:00 93 L 09/14/19 07:29 98.0 F 75 20 135/82 93 L Pulse Ox Pulse Ox 09/14/19 10:27 92 L 94 L 09/14/19 08:10 09/14/19 08:00 09/14/19 07:29 Weight Weight 186 lb 1 oz I&O: 09/13/19 09/14/19 09/15/19 06:59 06:59 06:59 Intake Total 600 840 Output Total 800 200 Balance -200 640 Result Diagrams: 09/11/19 03:54 09/11/19 03:54 Additional Labs: Microbiology 09/06/19 11:39 Urine Straight Catheter Urine Culture - Final Aerococcus urinae Laboratory Tests 09/06/19 09/07/19 09/08/19 11:29 04:09 10:50 Creatinine 0.85 0.80 0.86 Lipase 09/09/19 09/10/19 09/11/19 09:42 04:02 03:54 Creatinine 1.08 1.01 Lipase 97 H 74 35 Microbiology 09/06/19 11:39 Urine Straight Catheter Urine Culture - Final Aerococcus urinae Laboratory Tests 09/06/19 09/07/19 09/08/19 11:29 04:09 10:50 Creatinine 0.85 0.80 0.86 Lipase 09/09/19 09/10/19 09/11/19 09:42 04:02 03:54 Creatinine 1.08 1.01 Lipase 97 H 74 35 Hospitalist ROS - Medication Medications: Active Medications Generic Name Dose Route Start Last Admin Trade Name Freq PRN Reason Stop Dose Admin Acetaminophen 650 mg 09/06/19 14:03 09/14/19 08:15 Tylenol PO 650 mg Q4H PRN Administration Headache/Fever/Mild Pain (1-3) Apixaban 5 mg 09/13/19 21:00 09/14/19 08:10 Eliquis PO 5 mg BID MANA Administration Benzonatate 100 mg 09/12/19 03:28 09/12/19 21:38 Tessalon PO 100 mg TIDPRN PRN Administration Cough Cyanocobalamin 1,000 mcg 09/07/19 09:00 09/14/19 08:10 Vitamin B-12 PO 1,000 mcg DAILY MANA Administration Digoxin 0.125 mg 09/07/19 09:00 09/14/19 08:10 Lanoxin PO 0.125 mg DAILY MANA Administration Diltiazem HCl 180 mg 09/06/19 21:00 09/14/19 08:10 Cardizem Cd PO 180 mg BID MANA Administration Famotidine 20 mg 09/14/19 09:00 09/14/19 08:10 Pepcid PO 20 mg DAILY MANA Administration Flecainide Acetate 50 mg 09/06/19 21:00 09/14/19 08:10 Tambocor PO 50 mg Q12HR MANA Administration Folic Acid 1 mg 09/07/19 09:00 09/14/19 08:11 Folvite PO 1 mg BID MANA Administration Furosemide 40 mg 09/07/19 09:00 09/14/19 08:11 Lasix PO 40 mg DAILY MANA Administration Melatonin 3 mg 09/07/19 18:52 09/13/19 01:34 Melatonin PO 3 mg HS PRN Administration Insomnia Metoprolol Tartrate 25 mg 09/06/19 21:00 09/14/19 08:11 Lopressor PO 25 mg BID MANA Administration Multivitamins 1 tab 09/07/19 09:00 09/14/19 08:11 Theragran PO 1 tab DAILY MNAA Administration Potassium Chloride 20 meq 09/07/19 09:00 09/14/19 08:10 K-Dur PO 20 meq DAILY MANA Administration Senna/Docusate Sodium 2 tab 09/13/19 10:23 09/13/19 11:13 Senokot S PO 2 tab BID PRN Administration Constipation Sodium Chloride 10 ml 09/06/19 14:03 09/13/19 07:53 Flush - Normal Saline IVF 10 ml PRN PRN Administration Saline Flush - Exam General Appearance: NAD, awake alert Eye: PERRL, anicteric sclera ENT: normocephalic atraumatic, no oropharyngeal lesions Neck: supple, symmetric, no JVD, no thyromegaly Heart: RRR, no murmur, no gallops, no rubs, normal peripheral pulses Heart - other findings: S1, S2 Respiratory: CTAB, no wheezes, no rales, no ronchi, normal chest expansion Gastrointestinal: soft, non-tender, non-distended, normal bowel sounds, no palpable masses Extremities: no cyanosis, no clubbing, no edema Skin: normal turgor, no lesions Neurological: cranial nerve grossly intact, no new deficit Musculoskeletal: normal tone, generalized weakness Psychiatric: normal affect, A&O x 3 Hosp A/P (1) UTI (urinary tract infection) Status: Acute Plan: Completed course of Rocephin (2) Generalized weakness Code(s): R53.1 - WEAKNESS Status: Chronic Plan: PT for mobilization, Rehab/SNF options pending (3) CKD (chronic kidney disease), stage III Code(s): N18.3 - CHRONIC KIDNEY DISEASE, STAGE 3 (MODERATE) Status: Chronic Plan: Avoid nephrotoxic meds and limit contrast exposure (4) Chronic anticoagulation Code(s): Z79.01 - S[facility]IOR [facility]ARE (CURRENT) USE OF ANTICOAGULANTS Status: Chronic Plan: Continue Eliquis - Plan PT/OT, social work manager, out of bed/ambulate, DVT proph w/SCDs Stable currently Awaiting SNF options Continue Eliquis OOB with PT CPAP for nocturnal use Likely d/c in 48h
[2019-09-15] MEDS: Metoprolol Tartrate 25 MG TAB PO SCH ×2 (08:50→21:14)
[2019-09-15] MEDS: Apixaban 5 MG TAB PO SCH ×2 (08:50→21:14)
[2019-09-15] MEDS: Flecainide 50 MG TAB PO SCH ×2 (08:51→21:15)
[2019-09-15] MEDS: Multivit, Therapeutic 1 TAB PO SCH (08:51)
[2019-09-15] MEDS: Potassium Chloride 20 MEQ TAB PO SCH (08:52)
[2019-09-15] MEDS: Furosemide 40 MG TAB PO SCH (08:52)
[2019-09-15] MEDS: Famotidine 20 MG TAB PO SCH (08:52)
[2019-09-15] MEDS: Cyanocobalamin (Vitamin B-12) 1,000 MCG TAB PO SCH (08:52)
[2019-09-15] MEDS: Folic Acid 1 MG TAB PO SCH ×2 (08:52→21:14)
[2019-09-15] MEDS: Digoxin 0.125 MG TAB PO SCH (08:52)
[2019-09-15] MEDS: Acetaminophen 325 MG TAB PO PRN (09:01)
--- NOTE | 2019-09-15 16:31 | PDOC.HOSPP ---
- Subjective Encounter Date: 09/15/19 Encounter Time: 16:30 Subjective: f/u for general weakness and UTI completing abx therapy. Awaiting SNF placement. - Objective Vital Signs & Weight: Vital Signs (12 hours) Temp Pulse Resp BP Pulse Ox 09/15/19 08:52 72 09/15/19 08:00 91 L 09/15/19 07:24 97.3 F L 88 18 130/72 91 L Weight Weight 189 lb 7 oz I&O: 09/14/19 09/15/19 09/16/19 06:59 06:59 06:59 Intake Total 840 400 Output Total 200 750 Balance 640 -750 400 Result Diagrams: 09/11/19 03:54 09/11/19 03:54 Additional Labs: Microbiology 09/06/19 11:39 Urine Straight Catheter Urine Culture - Final Aerococcus urinae Laboratory Tests 09/06/19 09/07/19 09/08/19 11:29 04:09 10:50 Creatinine 0.85 0.80 0.86 Lipase 09/09/19 09/10/19 09/11/19 09:42 04:02 03:54 Creatinine 1.08 1.01 Lipase 97 H 74 35 Hospitalist ROS - Medication Medications: Active Medications Generic Name Dose Route Start Last Admin Trade Name Freq PRN Reason Stop Dose Admin Acetaminophen 650 mg 09/06/19 14:03 09/15/19 09:01 Tylenol PO 650 mg Q4H PRN Administration Headache/Fever/Mild Pain (1-3) Apixaban 5 mg 09/13/19 21:00 09/15/19 08:50 Eliquis PO 5 mg BID MANA Administration Benzonatate 100 mg 09/12/19 03:28 09/12/19 21:38 Tessalon PO 100 mg TIDPRN PRN Administration Cough Cyanocobalamin 1,000 mcg 09/07/19 09:00 09/15/19 08:52 Vitamin B-12 PO 1,000 mcg DAILY MANA Administration Digoxin 0.125 mg 09/07/19 09:00 09/15/19 08:52 Lanoxin PO 0.125 mg DAILY MANA Administration Diltiazem HCl 180 mg 09/06/19 21:00 09/15/19 08:50 Cardizem Cd PO 180 mg BID MANA Administration Famotidine 20 mg 09/14/19 09:00 09/15/19 08:52 Pepcid PO 20 mg DAILY MANA Administration Flecainide Acetate 50 mg 09/06/19 21:00 09/15/19 08:51 Tambocor PO 50 mg Q12HR MANA Administration Folic Acid 1 mg 09/07/19 09:00 09/15/19 08:52 Folvite PO 1 mg BID MANA Administration Furosemide 40 mg 09/07/19 09:00 09/15/19 08:52 Lasix PO 40 mg DAILY MANA Administration Melatonin 3 mg 09/07/19 18:52 09/13/19 01:34 Melatonin PO 3 mg HS PRN Administration Insomnia Metoprolol Tartrate 25 mg 09/06/19 21:00 09/15/19 08:50 Lopressor PO 25 mg BID MANA Administration Multivitamins 1 tab 09/07/19 09:00 09/15/19 08:51 Theragran PO 1 tab DAILY MANA Administration Potassium Chloride 20 meq 09/07/19 09:00 09/15/19 08:52 K-Dur PO 20 meq DAILY MANA Administration Senna/Docusate Sodium 2 tab 09/13/19 10:23 09/13/19 11:13 Senokot S PO 2 tab BID PRN Administration Constipation Sodium Chloride 10 ml 09/06/19 14:03 09/13/19 07:53 Flush - Normal Saline IVF 10 ml PRN PRN Administration Saline Flush - Exam General Appearance: NAD, awake alert Eye: PERRL, anicteric sclera ENT: normocephalic atraumatic, no oropharyngeal lesions Neck: supple, symmetric, no JVD, no thyromegaly, no lymphadenopathy Heart: no gallops, no rubs, normal peripheral pulses, irregular Heart - other findings: S1, S2 Respiratory: CTAB, no wheezes, no rales, no ronchi, normal chest expansion Gastrointestinal: soft, non-tender, non-distended, normal bowel sounds, no palpable masses Extremities: no cyanosis, no clubbing, no edema Skin: normal turgor, no lesions Neurological: cranial nerve grossly intact, no new deficit Musculoskeletal: normal tone, generalized weakness Psychiatric: normal affect, A&O x 3 Hosp A/P (1) UTI (urinary tract infection) Status: Acute (2) Generalized weakness Code(s): R53.1 - WEAKNESS Status: Chronic (3) CKD (chronic kidney disease), stage III Code(s): N18.3 - CHRONIC KIDNEY DISEASE, STAGE 3 (MODERATE) Status: Chronic (4) Chronic anticoagulation Code(s): Z79.01 - GROUP HOME (CURRENT) USE OF ANTICOAGULANTS Status: Chronic - Plan PT/OT, healthcare social worker, out of bed/ambulate, DVT proph w/SCDs Stable currently Awaiting SNF options Continue Eliquis 5mg BID OOB with PT/OT CPAP for nocturnal use Likely d/c in 24-48h
[2019-09-16] MEDS: Cyanocobalamin (Vitamin B-12) 1,000 MCG TAB PO SCH (08:37)
[2019-09-16] MEDS: Flecainide 50 MG TAB PO SCH ×2 (08:37→20:44)
[2019-09-16] MEDS: Digoxin 0.125 MG TAB PO SCH (08:37)
[2019-09-16] MEDS: Famotidine 20 MG TAB PO SCH (08:37)
[2019-09-16] MEDS: Potassium Chloride 20 MEQ TAB PO SCH (08:39)
[2019-09-16] MEDS: Metoprolol Tartrate 25 MG TAB PO SCH ×2 (08:39→20:45)
[2019-09-16] MEDS: Apixaban 5 MG TAB PO SCH ×2 (08:40→20:44)
[2019-09-16] MEDS: Furosemide 40 MG TAB PO SCH (08:41)
[2019-09-16] MEDS: Multivit, Therapeutic 1 TAB PO SCH (08:41)
[2019-09-16] MEDS: Folic Acid 1 MG TAB PO SCH ×2 (08:41→20:45)
--- NOTE | 2019-09-16 13:12 | PDOC.HOSPP ---
- Subjective Encounter Date: 09/16/19 Encounter Time: 13:05 Subjective: f/u for UTI/generalized weakness on hospital day #10. Completed abx therapy and awaiting SNF placement. No new complaints. - Objective Vital Signs & Weight: Vital Signs (12 hours) Temp Pulse Resp BP BP Pulse Ox 09/16/19 12:44 97.5 F L 69 20 112/73 91 L 09/16/19 08:43 93 L 09/16/19 08:37 90 09/16/19 08:34 97.5 F L 90 20 105/72 93 L Weight Weight 189 lb 7 oz I&O: 09/15/19 09/16/19 09/17/19 06:59 06:59 06:59 Intake Total 760 Output Total 750 1600 Balance -750 -840 Result Diagrams: 09/11/19 03:54 09/11/19 03:54 Additional Labs: Microbiology 09/06/19 11:39 Urine Straight Catheter Urine Culture - Final Aerococcus urinae Laboratory Tests 09/06/19 09/07/19 09/08/19 11:29 04:09 10:50 Creatinine 0.85 0.80 0.86 Lipase 09/09/19 09/10/19 09/11/19 09:42 04:02 03:54 Creatinine 1.08 1.01 Lipase 97 H 74 35 Hospitalist ROS - Medication Medications: Active Medications Generic Name Dose Route Start Last Admin Trade Name Freq PRN Reason Stop Dose Admin Acetaminophen 650 mg 09/06/19 14:03 09/15/19 09:01 Tylenol PO 650 mg Q4H PRN Administration Headache/Fever/Mild Pain (1-3) Apixaban 5 mg 09/13/19 21:00 09/16/19 08:40 Eliquis PO 5 mg BID MANA Administration Benzonatate 100 mg 09/12/19 03:28 09/12/19 21:38 Tessalon PO 100 mg TIDPRN PRN Administration Cough Cyanocobalamin 1,000 mcg 09/07/19 09:00 09/16/19 08:37 Vitamin B-12 PO 1,000 mcg DAILY MANA Administration Digoxin 0.125 mg 09/07/19 09:00 09/16/19 08:37 Lanoxin PO 0.125 mg DAILY MANA Administration Diltiazem HCl 180 mg 09/06/19 21:00 09/16/19 08:39 Cardizem Cd PO Not Given BID MANA Famotidine 20 mg 09/14/19 09:00 09/16/19 08:37 Pepcid PO 20 mg DAILY MANA Administration Flecainide Acetate 50 mg 09/06/19 21:00 09/16/19 08:37 Tambocor PO 50 mg Q12HR MANA Administration Folic Acid 1 mg 09/07/19 09:00 09/16/19 08:41 Folvite PO 1 mg BID MANA Administration Furosemide 40 mg 09/07/19 09:00 09/16/19 08:41 Lasix PO 40 mg DAILY MANA Administration Melatonin 3 mg 09/07/19 18:52 09/13/19 01:34 Melatonin PO 3 mg HS PRN Administration Insomnia Metoprolol Tartrate 25 mg 09/06/19 21:00 09/16/19 08:39 Lopressor PO 25 mg BID MANA Administration Multivitamins 1 tab 09/07/19 09:00 09/16/19 08:41 Theragran PO 1 tab DAILY MANA Administration Potassium Chloride 20 meq 09/07/19 09:00 09/16/19 08:39 K-Dur PO 20 meq DAILY MANA Administration Senna/Docusate Sodium 2 tab 09/13/19 10:23 09/13/19 11:13 Senokot S PO 2 tab BID PRN Administration Constipation Sodium Chloride 10 ml 09/06/19 14:03 09/13/19 07:53 Flush - Normal Saline IVF 10 ml PRN PRN Administration Saline Flush - Exam General Appearance: NAD, awake alert Eye: PERRL, anicteric sclera ENT: normocephalic atraumatic, no oropharyngeal lesions Neck: supple, symmetric, no JVD, no thyromegaly Heart: RRR, no murmur, no gallops, no rubs, normal peripheral pulses Heart - other findings: S1, S2 Respiratory: CTAB, no wheezes, no rales, no ronchi, normal chest expansion Gastrointestinal: soft, non-tender, non-distended, normal bowel sounds, no palpable masses Extremities: no cyanosis, no clubbing, no edema Skin: normal turgor, no lesions Neurological: cranial nerve grossly intact, no new deficit Musculoskeletal: normal tone, generalized weakness Psychiatric: normal affect, A&O x 3 Hosp A/P (1) UTI (urinary tract infection) Status: Acute Plan: Completed abx therapy (2) Generalized weakness Code(s): R53.1 - WEAKNESS Status: Chronic Plan: Multifactorial, PT/OT for mobilization, SNF placement pending (3) CKD (chronic kidney disease), stage III Code(s): N18.3 - CHRONIC KIDNEY DISEASE, STAGE 3 (MODERATE) Status: Chronic (4) Chronic anticoagulation Code(s): Z79.01 - SNF (CURRENT) USE OF ANTICOAGULANTS Status: Chronic - Plan PT/OT, social work manager, out of bed/ambulate, DVT proph w/SCDs Stable currently Awaiting SNF options Continue Eliquis 5mg BID OOB with PT/OT CPAP for nocturnal use Likely d/c in 24-48h
[2019-09-17] MEDS: Acetaminophen 325 MG TAB PO PRN (01:39)
[2019-09-17] MEDS: Potassium Chloride 20 MEQ TAB PO SCH (08:43)
[2019-09-17] MEDS: Digoxin 0.125 MG TAB PO SCH (08:43)
[2019-09-17] MEDS: Furosemide 40 MG TAB PO SCH (08:43)
[2019-09-17] MEDS: Folic Acid 1 MG TAB PO SCH (08:43)
[2019-09-17] MEDS: Cyanocobalamin (Vitamin B-12) 1,000 MCG TAB PO SCH (08:44)
[2019-09-17] MEDS: Famotidine 20 MG TAB PO SCH (08:44)
[2019-09-17] MEDS: Apixaban 5 MG TAB PO SCH (08:44)
[2019-09-17] MEDS: Multivit, Therapeutic 1 TAB PO SCH (08:44)
[2019-09-17] MEDS: Flecainide 50 MG TAB PO SCH (08:44)
[2019-09-17] MEDS: Metoprolol Tartrate 25 MG TAB PO SCH (08:44)
[2019-09-17 12:36] VITALS: BP 124/83; TEMP 98.5
--- NOTE | 2019-09-17 19:08 | DIS ---
DATE OF ADMISSION: 09/08/2019 DATE OF DISCHARGE: 09/17/2019 DISCHARGE DIAGNOSES: 1. Choledocholithiasis with periampullary mass, status post sphincterotomy with stent placement. 2. Generalized weakness, multifactorial. 3. Urinary tract infection with Aerococcus urinae, resolved. 4. Chronic atrial fibrillation with chronic anticoagulation with Eliquis. 5. Chronic diastolic heart failure, stable. 6. Chronic kidney disease stage 3. CONSULTATIONS: Dr. Holman and Dr. Redmond with GI Service. PERTINENT LABORATORY AND X-RAY FINDINGS: Creatinine ranged between 0.80 to 1.18, estimated GFR ranged between 44 to 69. Total bilirubin ranged between 0.9 to 1.5. Magnesium level 2.2, alkaline phosphatase ranged between 228 to 375. Lipase ranged between 35 to 97. Vitamin B12 level 466, folate level 6.70. Urine culture dated 09/06/2019, showed greater than 100,000 colonies of Aerococcus urinae. Portable chest x-ray dated 09/06/2019, showed no acute infiltrate. Abdominal ultrasound dated 09/07/2019, showed marked common bile duct dilation with distended gallbladder with sludge. Choledocholithiasis noted. Abdominal MRI dated 09/10/2019, showed cholelithiasis with choledocholithiasis and prominent extrahepatic and moderate intrahepatic biliary ductal dilation. HOSPITAL COURSE: The patient was initially admitted after presenting with generalized weakness with abnormal liver function tests and mild abdominal pain. The patient underwent general evaluation including metabolic screening showing evidence of elevated alkaline phosphatase and mild hyperbilirubinemia. Abdominal ultrasound did show evidence of choledocholithiasis as well as common bile duct dilation, prompting a GI consult. The patient underwent abdominal MRI imaging showing dilated common bile duct with choledocholithiasis. The patient underwent ERCP evaluation showing evidence of a periampullary mass. The patient underwent sphincterotomy with common bile duct stent placement with removal of large stone in the common bile duct. Multiple biopsies were obtained with pathology showing inflammatory process without evidence of high-grade dysplasia. The patient clinically improved after sphincterotomy and stent placement with drainage of the common bile duct. The patient was also treated for urinary tract infection with Aerococcus species, completing the course of antibiotics prior to discharge. Due to the patient's overall deconditioned status and generalized weakness, the patient was deemed an appropriate candidate for ongoing skilled care. The patient has been approved and will transfer to [facility] in [place], [place], after discharge. I have examined the patient at the time of discharge and discussed followup instructions. The patient verbalizes understanding and agreement ready for discharge, 09/17/2019. DISCHARGE MEDICATIONS: 1. Diltiazem CD 180 mg p.o. b.i.d. 2. Lasix 40 mg p.o. daily. 3. Potassium chloride 20 mEq p.o. daily. 4. Eliquis 5 mg p.o. b.i.d. 5. Vitamin B12 of 1000 mcg p.o. daily. 6. Digoxin 0.125 mg p.o. daily. 7. Tambocor 50 mg p.o. b.i.d. 8. Folic acid 1 mg p.o. b.i.d. 9. Metoprolol tartrate 25 mg p.o. b.i.d. FOLLOWUP: The patient may follow up with her primary care provider, Kiran Kruger. The patient will follow up with Dr. Sid Gibbons with GI Service and to call the office for appointment time and date. CONDITION ON DISCHARGE: Fair. ACTIVITY: Ad-jennyfer. Rolling walker with standby assistance. DIET: Heart healthy. CODE STATUS: Full. DISPOSITION: Discharged to [facility], 09/17/2019. TIME SPENT: Total time preparing and coordinating discharge, 32 minutes. Job ID: [id number]
== END 2019-09-17 14:11 | DRG 444 ==
LOC: ERS 10:43 → 2NO 13:55 → OBSVTOIN 09-08 20:53 → T4-B 09-11 19:05
PROVIDERS: ADMIT Internal Medicine; ATTEND Family Medicine
PROC: 0F798DZ Dilation of Common Bile Duct with Intraluminal Device, Via Natural or Artificial Opening Endoscopic (ICD-10-PCS; principal; 2019-09-10)
PROC: 0FC98ZZ Extirpation of Matter from Common Bile Duct, Via Natural or Artificial Opening Endoscopic (ICD-10-PCS; 2019-09-10)
DX: K80.70 Calculus of gallbladder and bile duct without cholecystitis without obstruction (principal); K83.1 Obstruction of bile duct; N39.0 Urinary tract infection, site not specified; I48.20 Chronic atrial fibrillation, unspecified; I50.32 Chronic diastolic (congestive) heart failure; I13.0 Hypertensive heart and chronic kidney disease with heart failure and stage 1 through stage 4 chronic kidney disease, or unspecified chronic kidney disease; B96.89 Other specified bacterial agents as the cause of diseases classified elsewhere; N18.3 Chronic kidney disease, stage 3 (moderate); I25.10 Atherosclerotic heart disease of native coronary artery without angina pectoris; G47.33 Obstructive sleep apnea (adult) (pediatric); E53.8 Deficiency of other specified B group vitamins; D13.5 Benign neoplasm of extrahepatic bile ducts; Z93.3 Colostomy status; Z95.2 Presence of prosthetic heart valve; Z88.2 Allergy status to sulfonamides; Z88.0 Allergy status to penicillin; Z79.899 Other long term (current) drug therapy; Z79.01 Long term (current) use of anticoagulants
CPT/HCPCS: 36415; 51701; 71045; 74181; 74330; 76705; 80053; 81003; 81015; 82550; 82553; 82607; 82746; 83605; 83690; 83735; 83880; 84100; 84484; 85025; 87077; 87086; 88305; 93005; 96360; 96361; A4353; G0378; J0696; J1100; J2001; J2405; J2550; J2704; J3010; J3490; Q9967